=== PATIENT | male | born 1965 | race Caucasian/White ===

== ENCOUNTER 2020-01-08 08:17 | Outpatient (CLI) | payer BC, SELFPAY ==
--- NOTE | ~2020-01-08 | US_ITS ---
EXAMINATION: US art doppler w press LE BI DATE: 01/08/2020 09:12 INDICATION: Unspecified disorder of circulatory system. Peripheral vascular risk factors of hypertens ion and prior smoking. Numbness and tingling to the lower limbs. TECHNIQUE: Segmental pressures and plethysmographic and Doppler waveforms of the brachial and lower e xtremity arteries were obtained. COMPARISON: None. FINDINGS: Right and left brachial artery pressures of 136 mm Hg and 154 mm Hg, respectively, are concordant (no rmal difference <= 30 mmHg). The right and left high-thigh pressure indices were unable to be obtaine d due to inability to occlude the vessels (normal > 1.2). The right ankle-brachial index (KELLY) is 1.20 (normal >= 0.9-1). The right great toe-brachial index (T BI) is 1.08 (normal >= 0.6-0.8). The right lower extremity segmental pressure gradients are normal (n ormal gradients <= 20-30 mmHg between adjacent levels on the same leg or the same levels on the two l egs). Arterial waveforms are triphasic at the right common femoral, superficial femoral and popliteal arteries and biphasic more distally with brisk systolic upstrokes throughout. The left KELLY is 1.19. The left TBI is 1.21. The left lower extremity segmental pressure gradients are normal. Arterial waveforms are triphasic at the left common femoral and superficial femoral arteries and biphasic more distally with brisk systolic upstrokes throughout. IMPRESSION: 1. Normal KELLY's and TBI's bilaterally. No significant occlusive disease. Reviewed, dictated and finalized at location A.
== END 2020-01-08 08:18 | disposition home or self-care (01) ==
PROVIDERS: PCP Physician Assistant; Visit Provider Physician Assistant
DX: I99.9 Unspecified disorder of circulatory system (principal); I10 Essential (primary) hypertension; R20.0 Anesthesia of skin; R20.2 Paresthesia of skin
CPT/HCPCS: 93923

== ENCOUNTER 2020-03-20 08:25 | Outpatient (CLI) | payer BC, SELFPAY ==
--- NOTE | 2020-03-20 08:33 | EST_ITS ---
Patient Info Name: Edwardo Lisa Age: 54 years : 1965 Gender: Male Ht: 69 in Wt: 185 lbs BSA: 2.04 m2 Exam Date: 03/20/2020 9:10 AM Exam Location: [facility] Stress Patient Status: Outpatient Admit Date: 03/20/2020 Staff Ordering Physician: Roberto Mccormack PA-C Attending Provider: Roberto Mccormack PA-C Exercise Technologist: Hillary Zhu RDCS Exercise Physician: Myron Saunders DO Exam Type: CA stress test treadmill Study Info Indications R07.9 - Chest pain, unspecified A treadmill exercise stress test was performed. Summary 1. 1. Abnormal Rubens exercise stress test for ischemic ST changes by ECG criteria. 2. 2. Reduced functional capacity, achieving 6 METs of workload. This was limited due to development of chest pains. 3. 3. Baseline hypertension with hypertensive response to exercise. 4. 4. Appropriate HR response to exercise. 5. 5. Appropriate HR recovery at 1 minute post exercise. 6. 6. No imaging with stress testing. 7. 7. Patient informed of the above results. 8. 8. Roberto Mccormack was informed of the above results. Protocol: [facility] Stress ECG Details Stage: REST Duration (min): 8 min : 54 sec Speed (mph): 0.0 Grade (%): 0 HR (bpm): 78 SBP (mmHg): 147 DBP (mmHg): 100 METS: --- Stage: REST Duration (min): 10 min : 10 sec Speed (mph): 0.0 Grade (%): 0 HR (bpm): 90 SBP (mmHg): 147 DBP (mmHg): 100 METS: --- Stage: STAGE 1 Duration (min): 1 min : 0 sec Speed (mph): 1.7 Grade (%): 10 HR (bpm): 112 SBP (mmHg): 147 DBP (mmHg): 100 METS: --- Stage: STAGE 1 Duration (min): 2 min : 0 sec Speed (mph): 1.7 Grade (%): 10 HR (bpm): 127 SBP (mmHg): 147 DBP (mmHg): 100 METS: --- Stage: STAGE 1 Duration (min): 3 min : 0 sec Speed (mph): 1.7 Grade (%): 10 HR (bpm): 139 SBP (mmHg): 192 DBP (mmHg): 105 METS: --- Stage: STAGE 2 Duration (min): 1 min : 0 sec Speed (mph): 2.5 Grade (%): 12 HR (bpm): 150 SBP (mmHg): 192 DBP (mmHg): 105 METS: --- Stage: STAGE 2 Duration (min): 1 min : 0 sec Speed (mph): 2.5 Grade (%): 12 HR (bpm): 150 SBP (mmHg): 192 DBP (mmHg): 105 METS: --- Stage: RECOVERY Duration (min): 0 min : 59 sec Speed (mph): 0.0 Grade (%): 0 HR (bpm): 136 SBP (mmHg): 202 DBP (mmHg): 102 METS: --- Stage: RECOVERY Duration (min): 1 min : 59 sec Speed (mph): 0.0 Grade (%): 0 HR (bpm): 113 SBP (mmHg): 202 DBP (mmHg): 102 METS: --- Stage: RECOVERY Duration (min): 2 min : 59 sec Speed (mph): 0.0 Grade (%): 0 HR (bpm): 101 SBP (mmHg): 224 DBP (mmHg): 84 METS: --- Stage: RECOVERY Duration (min): 3 min : 59 sec Speed (mph): 0.0 Grade (%): 0 HR (bpm): 103 SBP (mmHg): 224 DBP (mmHg): 84 METS: --- Stage: RECOVERY Duration (min): 4 min : 59 sec Speed (mph): 0.0 G
== END 2020-03-20 08:26 | disposition home or self-care (01) ==
PROVIDERS: PCP Physician Assistant; Visit Provider Physician Assistant
DX: R07.9 Chest pain, unspecified (principal); I10 Essential (primary) hypertension
CPT/HCPCS: 93017

== ENCOUNTER 2020-03-30 02:10 | Outpatient (CLI) | payer BC, SELFPAY ==
[2020-03-30 18:20] LABS: SARS-CoV-2 RNA PCR Negative
== END 2020-03-30 02:11 | disposition home or self-care (01) ==
LOC: ANHCOVIDDT 02:11
PROVIDERS: PCP Physician Assistant; Visit Provider Specialist
DX: Z01.812 Encounter for preprocedural laboratory examination (principal); Z11.59 Encounter for screening for other viral diseases
CPT/HCPCS: 87635; C9803; U0003

== ENCOUNTER 2020-03-30 16:19 | Observation (INO) | payer BC, SELFPAY ==
[2020-03-30] VITALS (8 sets, daily range): BP systolic 98–153; BP diastolic 70–84; PULSE 57–72; RESP 10–18; TEMP 36.1–36.8; O2SAT 14–100; BMI 24.3
--- NOTE | ~2020-03-30 | XR_ITS ---
EXAMINATION: XR chest 2V DATE: 03/30/2020 16:46 INDICATION: Left chest pain. TECHNIQUE: Frontal and lateral views of the chest were obtained. COMPARISON: None. FINDINGS: There is mild atelectasis in lingula. No pleural effusion or pneumothorax. The heart size i s normal. IMPRESSION: 1. Mild atelectasis in lingula. Reviewed, dictated and finalized at location B.
--- NOTE | 2020-03-30 16:21 | ECG_ITS ---
Measurements Intervals [place] Rate: 67 P: 69 TX: 176 QRS: 39 QRSD: 90 T: 75 QT: 364 QTc: 386 Interpretive Statements SINUS RHYTHM BASELINE ARTIFACT- I, II, AVR NORMAL ECG Electronically Signed On 03-30-2020 16:37:14 CDT by Myron Saunders D.O.
--- NOTE | 2020-03-30 16:30 | ED.CHESTPAIN ---
HPI - Chest Pain General Chief Complaint: Chest Pain Stated Complaint: chest pain Time Seen by Provider: 03/30/20 16:29 Source: patient and family Mode of arrival: ambulatory Limitations: no limitations History of Present Illness HPI narrative: Patient is a 54-year-old male who presents for evaluation of chest pain. Patient reports a one-month history of intermittent, sharp chest pain that seems to come and go spontaneously. Patient reports that pain has been constant over the past 12 hours, but does improve with nitroglycerin. Patient states that he is scheduled for a echocardiogram and cardiac catheterization with Dr. Vences next week as he failed a outpatient stress test and required nitroglycerin, and consultation with Dr. Saunders following the stress test. Patient has been compliant with his medications. Patient currently reports pain is very mild, at times there is radiation to the left shoulder through the left arm. No current back pain, jaw pain or arm pain. No current nausea, diaphoresis or shortness of breath. Related Data Home Medications Medication Instructions Recorded Confirmed cod liver oil 1 cap PO DAILY 08/27/19 03/20/20 echinacea 380 mg capsule 380 mg PO DAILY 08/27/19 03/20/20 flaxseed oil 1,000 mg capsule 1,000 mg PO DAILY 08/27/19 03/20/20 hawthorn webb 565 mg capsule mg PO 08/27/19 03/20/20 lisinopril 10 mg tablet 10 mg PO DAILY 08/27/19 03/20/20 multivitamin with min tablet PO 08/27/19 03/20/20 no.36-iron,carbonyl-FA 16 mg iron-0.38 mg tablet valerian root 250 mg capsule 250 mg PO DAILY 08/27/19 03/20/20 ascorbic acid (vitamin C) 500 mg mg PO DAILY cap 03/20/20 03/20/20 capsule aspirin 81 mg tablet,delayed 81 mg PO DAILY 03/20/20 03/20/20 release diphenhydramine HCl 25 mg capsule 25 mg PO DAILY PRN cap 03/20/20 03/20/20 zinc 50 mg tablet 50 mg PO DAILY 03/20/20 03/20/20 Calcium 600 600 mg PO 03/30/20 ascorbic acid-elderberry fruit 1 tablet PO 03/30/20 [Airborne (elderberry)] copper gluconate 1 mg PO DAILY 03/30/20 terbinafine HCl 250 mg PO 03/30/20 Allergies Allergy/AdvReac Type Severity Reaction Status Date / Time Penicillins Allergy Mild Itching Verified 03/30/20 16:29 Review of Systems Review of Systems: Narrative: CONSTITUTIONAL: Denies fever, chills, or sweats. EYES: Denies visual changes CARDIOVASCULAR: Reports chest pain, denies palpitations, or edema. RESPIRATORY: Denies cough or dyspnea. GASTROINTESTINAL: Denies abdominal pain, nausea, vomiting, or diarrhea. GENITOURINARY: Denies dysuria or hematuria. SKIN: Denies rash or itching. MUSCULOSKELETAL: Denies back pain, joint pain, or myalgia. NEUROLOGIC: Denies headache, numbness, or weakness. [facility] Family History Family History Sibling Patient's sister is in good health Father Family history of malignant neoplasm Patient's father is Mother Patient's mother is Social History Social History Smoking status: Never smoker Second hand tobacco smoke exposure: No Alcohol intake: current Drinks per week: 0 Substance use: never Gender identity (if verbalized by the patient): Male Exam Narrative: Exam Narrative: GENERAL: Awake, alert, conversant HEAD: Normocephalic, atraumatic. EYES: PERRLA and EOMI. ENT: Nares clear, no rhinorrhea or epistaxis. Mucous membranes moist. NECK: Supple. CHEST: No respiratory distress, breathing even and non labored, no chest wall tenderness HEART: Regular rate, sinus rhythm ABDOMEN:Non distended, non tender EXTREMITIES: Normal range of motion. No edema. SKIN: Warm, dry, no rash. NEURO:No focal deficits. Alert and oriented x3 Course Vital Signs Vital signs: Vital Signs Temperature 36.7 C 03/30/20 16:22 Pulse Rate 67 03/30/20 16:22 Respiratory Rate 16 03/30/20 16:22 Blood Pressure 152/82 H 03/30/20 16:22
[2020-03-30 16:49] LABS: Basophils Absolute Auto 0.1 K/mm3 (0.0-0.1); Basophils Percent Auto 0.9 % (0.2-1.2); Eosinophils Absolute Auto 0.2 K/mm3 (0-0.3); Eosinophils Percent Auto 2.6 % (0-4.4); Hematocrit 45.1 % (42.0-52.0); Hemoglobin 15.3 g/dL (14.0-18.0); Immature Granulocyte Absolute 0.01 K/mm3 (0.00-0.031); Immature Granulocyte Percent A 0.2 % (0-0.5); Lymphocytes Percent Auto 27.1 % (18.3-44.2); Mean Corpuscular HGB Conc 33.9 g/dl (32-36); Mean Corpuscular Hemoglobin 31.3 pg (26-34); Mean Corpuscular Volume 92.2 fl (80-100); Mean Platelet Volume 10.5 fl (7.4-10.4); Monocytes Absolute Auto 0.7 K/mm3 (0.1-0.6); Monocytes Percent Auto 9.8 % (2.6-8.5); Neutrophils Absolute Auto 3.9 K/mm3 (1.3-6.7); Neutrophils Percent Auto 59.4 % (45.5-73.1); Platelet Count Result 298 k/mm3 (150-375); Red Blood Count 4.89 M/mm3 (4.6-6.20); Red Cell Distribution Width 12.5 % (11.5-14.5); White Blood Count 6.6 K/mm3 (4.5-10.0)
[2020-03-30 17:01] LABS: Anion Gap 8 mmol/L (8-16); Blood Urea Nitrogen 17 mg/dL (9-20); Calcium 9.3 mg/dL (8.4-10.2); Carbon Dioxide 27 mmol/L (22-30); Chloride 103 mmol/L (98-107); Estimated CRCL calculation 103 ml/min; Estimated Glomerular Filt Rate > 60; Glucose 105 mg/dL (75-110); Sodium 138 mmol/L (137-145)
[2020-03-30 17:09] LABS: INR 1.3; Partial Thromboplastin Time 27.6 SECONDS (22.3-36.8)
[2020-03-30 17:12] LABS: Troponin I < 0.012 ng/mL (0.000-0.034)
[2020-03-30] MEDS: ASPIRIN 81 MG CHEWABLE TABLET 324 MG PO (17:24)
[2020-03-30] MEDS: NITROGLYCERIN SL 0.4 MG TABLET SUBLINGUAL (17:29)
[2020-03-30] MEDS: ONDANSETRON INJ 4 MG/2 ML VIAL IV PUSH (17:29)
[2020-03-30] MEDS: MORPHINE SULFATE 4 MG/ML INJ IV PUSH (17:29)
--- NOTE | 2020-03-30 17:45 | PC.NURSE ---
EDP at bedside discussing POC w/ pt.
--- NOTE | 2020-03-30 17:46 | ECG_ITS ---
Measurements Intervals [place] Rate: 57 P: -16 HI: 174 QRS: 1 QRSD: 105 T: -19 QT: 423 QTc: 414 Interpretive Statements SINUS BRADYCARDIA POSSIBLE LEFT VENTRICULAR HYPERTROPHY MINIMAL Q WAVES- HIGH LATERAL LEADS BORDERLINE T WAVE ABNORMALITY- INFERIOR LEADS BORDERLINE ECG Electronically Signed On 03-30-2020 19:02:05 CDT by Myron Saunders D.O.
--- NOTE | 2020-03-30 17:48 | ECG_ITS ---
Measurements Intervals [place] Rate: 55 P: 70 NC: 175 QRS: 53 QRSD: 110 T: 78 QT: 437 QTc: 421 Interpretive Statements SINUS BRADYCARDIA MINIMAL Q WAVES- INFERIOR LEADS BORDERLINE T WAVE ABNORMALITY- HIGH LATERAL LEADS BORDERLINE ECG Electronically Signed On 03-31-2020 11:07:40 CDT by Myron Saunders D.O.
[2020-03-30] MEDS: SODIUM CHLORIDE 0.9% IV 1,000 ML 999 ML (17:51)
--- NOTE | 2020-03-30 17:53 | PC.NURSE ---
Per [facility] EDP Dr Sandoval, initiate 1 L NS 999MLS/HR due to pt became hypotensive following admin of Morphine 4 and 1 SL Nitro tab.
--- NOTE | 2020-03-30 18:24 | PC.NURSE ---
Per DR Sandoval, okay for repeat EKG due to pt states I feel like there is more tightness in my chest than before, and its more pinpoint. Pt VSS.
[2020-03-30 20:28] LABS: Troponin I < 0.012 ng/mL (0.000-0.034)
--- NOTE | 2020-03-30 20:32 | ADMGEN ---
This patient, Edwardo Lisa, was admitted to IMU Room 201-01. Patient/family oriented to hospital policies and general routines including ID bracelet, bed and alarms, visiting hours, pain management, procedures, bathroom and other care routines, personal items, smoking policy, room service/diet, and visiting hours. Valuables list has been completed. Information on how to activate the Rapid Response Team has been discussed. Patient/Family are encouraged to report perceived risks to care and to ask questions if they do not understand what they are told or what they should do.
--- NOTE | 2020-03-30 21:08 | PM.IMHP ---
H&P: HPI History of Present Illness Date/Time: 03/30/20 21:08 Reason for admission: CP. 54 yr old man whose PCP is ELDER Browne, presents to ER for chest pains. He has a history of hypertension and dyslipidemia. Reports in last several weeks he has been having intermittent chest pressure with walking or sexual activity. In the last 3 days he had constant waxing and waning chest pressure, chest pinching and sharp chest pains at rest in mid to left chest region. Currently it is at 3/10 and would go up to 5/10 in intensity. It is associated with sob. He took NTG at home and it eased his chest pain but did not take it away. He decided to come in to ER for evaluation. Thus far troponins are negative x 2. He was scheduled for cardiac cath on Monday with Dr. Vences. Denies sob, orthopnea, PND, palpitations. Cardiovascular Procedures Electrophysiology:: 03/20/20 EKG: Sinus rhythm at stress lab. Stress Tests:: 03/20/20 Treadmill stress test: Abnormal with 2-[address] depression in II, III, avF and V5-V6 with chest pains. Resolved with NTG SL x1. 01/08/20 KELLY with segmental pressures: Normal. Chief complaint: Chest pain Narrative: Edwardo Lisa is a 54 year old male Review of Systems Review of Systems: All systems reviewed & are unremarkable except as noted in HPI and below Constitutional: Constitutional: Reports as per HPI, Denies chills and Denies fatigue Cardiovascular: Cardiovascular: Reports as per HPI, Reports chest pain and Denies lightheadedness Respiratory: Respiratory: Reports as per HPI and Reports dyspnea Gastrointestinal: Gastrointestinal: Reports as per HPI and Denies abdominal pain Genitourinary: Genitourinary: Reports as per HPI and Denies dysuria Musculoskeletal: Musculoskeletal: Reports as per HPI Neurologic: Reports as per HPI, Denies Abnormal speech present and Denies confusion [facility] Family History Family History Sibling Patient's sister is in good health Father Family history of malignant neoplasm Patient's father is Mother Patient's mother is Social History Social History Smoking status: Former smoker Second hand tobacco smoke exposure: No Alcohol intake: current Drinks per week: 2 Substance use: never Substance use type: does not use Gender identity (if verbalized by the patient): Male Spiritual care concerns: No Meds Home Medications and Allergies Home Medications Medication Instructions Recorded Confirmed Type cod liver oil 1 cap PO DAILY 08/27/19 03/30/20 History echinacea 380 mg capsule 380 mg PO DAILY 08/27/19 03/30/20 History flaxseed oil 1,000 mg capsule 1,000 mg PO DAILY 08/27/19 03/30/20 History hawthorn webb 565 mg capsule 565 mg PO DAILY 08/27/19 03/30/20 History lisinopril 10 mg tablet 10 mg PO DAILY 08/27/19 03/30/20 History multivitamin with min 16 tablet PO DAILY 08/27/19 03/30/20 History no.36-iron,carbonyl-FA 16 mg iron-0.38 mg tablet valerian root 250 mg capsule 250 mg PO DAILY 08/27/19 03/30/20 History famotidine 20 mg tablet 20 mg PO BID PRN #60 tablet 08/28/19 03/30/20 Rx sildenafil 100 mg tablet See Rx Instructions .ROUTE 02/12/20 03/30/20 Rx .COMPLEX PRN #9 tablet ascorbic acid (vitamin C) 500 mg 5 mg PO DAILY cap 03/20/20 03/30/20 History capsule aspirin 81 mg tablet,delayed 81 mg PO DAILY 03/20/20 03/30/20 History release diphenhydramine HCl 25 mg capsule 25 mg PO DAILY PRN cap 03/20/20 03/30/20 History metoprolol succinate 25 mg 25 mg PO DAILY #30 tablet 03/20/20 03/30/20 Rx tablet,extended release 24 hr nitroglycerin 0.4 mg sublingual 0.4 mg SUBLINGUAL Q5M PRN #30 03/20/20 03/30/20 Rx tablet tablet pravastatin 20 mg tablet 20 mg PO DAILY #30 tablet 03/20/20 03/30/20 Rx zinc 50 mg tablet 50 mg PO DAILY 03/20/20 03/30/20 History Calcium 600 600 mg PO DAILY 0
[2020-03-30] MEDS: diphenhydrAMINE HCl CAP 25 MG CAPSULE PO (23:29)
[2020-03-30 23:43] LABS: Troponin I < 0.012 ng/mL (0.000-0.034)
[2020-03-31] VITALS (22 sets, daily range): BP systolic 122–162; BP diastolic 73–114; PULSE 58–79; RESP 10–18; TEMP 35.7–36.6; O2SAT 96–100
--- NOTE | 2020-03-31 | ECHO_ITS ---
Patient Info Name: Edwardo Lisa Age: 54 years : 1965 Gender: Male Ht: 69 in Wt: 165 lbs BSA: 1.92 m2 HR: 60 bpm BP: 140 / 73 mmHg Heart Rhythm: Sinus Rhythm Technical Quality: Fair Exam Date: 03/31/2020 1:32 PM Exam Location: [facility]monary Patient Status: Inpatient Admit Date: 03/30/2020 Staff Ordering Physician: Myron Saunders DO Fire Official: Sami Stockton RDCS Attending Provider: Myron Saunders DO Referring Physician: Chip BEDOYA; Exam Type: CA echo doppler color flow Study Info Indications R07.9 - Chest pain, unspecified Complete two-dimensional, color flow and Doppler transthoracic echocardiogram is performed. Strain analysis performed. History/Risk Factors Chest pain; LHC w/ complex LAD lesion, HTN, SOB/DURON. Summary 1. Left ventricular chamber dimension is normal. 2. Left ventricular systolic function is normal, estimated at 60-65%. 3. The left ventricular diastolic function is normal. 4. E/e' 8 is minimally elevated. 5. Global longitudinal strain is normal at -17.7%. Left Ventricle E/e' 8 is minimally elevated. Global longitudinal strain is normal at -17.7%. Left ventricular chamber dimension is normal. Left ventricular systolic function is normal, estimated at 60-65%. The left ventricular diastolic function is normal. Right Ventricle Right ventricular chamber dimension is normal. Right ventricular systolic function is normal. Left Atria Left atrial chamber dimension is normal. Right Atria Right atrial chamber dimension is normal. Aortic Valve Cannot determine number of aortic valve leaflets. The aortic valve is not well visualized. There is no aortic valve stenosis. There is no aortic valve regurgitation. Pulmonic Valve There is no pulmonic regurgitation. Mitral Valve There is no mitral valve stenosis. There is no mitral valve regurgitation. Tricuspid Valve There is no tricuspid valve regurgitation. Pericardium/Pleural There is no pericardial effusion. Inferior Vena Cava Normal inferior vena cava with >50% collapse upon inspiration consistent with normal right atrial pressure, 5 mmHg. Aorta The aortic root size at the sinus of Valsalva is normal. Left Ventricular Outflow Tract Name Value Normal LVOT 2D LVOT Diameter 2.0 cm LVOT Doppler LVOT Peak Gradient 2 mmHg LVOT Mean Gradient 1 mmHg LVOT VTI 16 cm LVOT VTI/AV VTI Ratio 0.8 LVOT Stroke Volume 48 ml LVOT CO 2.9 l/min LVOT CI 1.5 l/min/m2 Mitral Valve Name Value Normal MV Doppler MV Decel Cannon 271 cm/s2 MV PHT 72 ms MV Ar
--- NOTE | 2020-03-31 08:03 | PM.PNCARD ---
Progress Note: A&P Assessment and Plan (1) Chest pain: Code(s): R07.9 - Chest pain, unspecified Status: Acute Assessment and Plan: Probably unstable angina. OR ruled out by EKG and series of troponins. Echo today. Keep NPO until seen by [facility]. Notified Prema Alvarez with [facility] about patient as he was scheduled as outpatient to have left heart cath tomorrow. Risks/benefits/alternative treatment had been discussed with patient and he is agreeable for procedure. (2) Hypertension: Code(s): I10 - Essential (primary) hypertension Status: Acute Assessment and Plan: Stable. (3) Dyslipidemia: Code(s): E78.5 - Hyperlipidemia, unspecified Status: Acute (4) Abnormal stress test: Code(s): R94.39 - Abnormal result of other cardiovascular function study Status: Acute Subjective Date/time seen: 03/31/20 08:03 Reports chest pain is better this morning. No sob. Exam Const: General: comfortable and no acute distress Neck: Neck: no JVD Carotids: no bruits Resp: Auscultation: clear to auscultation bilaterally, no crackles, no rales, no rhonchi and no wheezes Cardio: Rate: regular rate Rhythm: regular rhythm Heart sounds: no murmurs GI: Inspection: non-distended Neuro: Speech: normal speech Extrem: Right lower extremity: no edema Left lower extremity: no edema Objective Data Vital Signs Vital Signs: Vital Signs - 24 hr 03/30/20 16:22 03/30/20 16:27 03/30/20 17:52 Temperature 98.1 F Pulse Rate 67 69 57 L Respiratory Rate 16 12 Blood Pressure 152/82 H 98/70 L Pulse Oximetry 96 96 03/30/20 18:48 03/30/20 19:23 03/30/20 19:50 Temperature 98.3 F Pulse Rate 70 72 69 Respiratory Rate 15 10 L 18 Blood Pressure 113/73 121/72 128/75 Pulse Oximetry 95 97 14 L 03/30/20 20:23 03/30/20 22:00 03/31/20 00:00 Temperature 97.0 F L 96.3 F L Pulse Rate 70 62 58 L Respiratory Rate 18 16 Blood Pressure 153/84 H 122/80 Pulse Oximetry 100 98 03/31/20 02:00 03/31/20 04:00 03/31/20 05:33 Temperature 97.8 F Pulse Rate 65 59 L 59 L Respiratory Rate 18 Blood Pressure 140/73 Pulse Oximetry 99 Intake/Output Intake/Output: Intake & Output 03/28/20 03/29/20 03/30/20 03/31/20 23:59 23:59 23:59 23:59 Intake Total 1000 250 Output Total 650 Balance 1000 -400 Meds/Results Medications: Active Medications Generic Name Dose Route Start Last Admin Trade Name Freq PRN Reason Stop Dose Admin Acetaminophen 650 mg 03/30/20 17:53 Tylenol Tablet PO Q4H PRN Mild Pain (1-3) or Fever Aspirin 81 mg 03/31/20 09:00 Aspirin Ec PO DAILY [facility] Diphenhydramine HCl 25 mg 03/30/20 21:14 03/30/20 23:29 Benadryl Cap PO 25 mg HS PRN Administration Sleep Famotidine 20 mg 03/30/20 21:14 Pepcid PO BID PRN GERD Lisinopril 10 mg 03/31/20 09:00 Prinivil PO DAILY [facility] Metoprolol Succinate 25 mg 03/31/20 09:00 Toprol Xl PO DAILY [facility] Nitroglycerin 0.4 mg 03/30/20 21:14 Nitrostat Subl 0.4 Mg (1/150) SUBLINGUAL Q5M PRN chest pain Non-Formulary Medication 1 mg 03/31/20 09:00 Finasteride PO 04/30/20 09:01 DAILY [facility] Ondansetron HCl 4 mg 03/30/20 17:53 Zofran Inj IV PUSH Q4H PRN Nausea Pravastatin Sodium 20 mg 03/31/20 09:00 Pravastatin Sodium PO DAILY [facility] Radiology Results: ITS Impressions Chest X-Ray 03/30/20 16:48 IMPRESSION: 1. Mild atelectasis in lingula. Labs Labs: Laboratory Results - last 24 hr 03/30/20 03/30/20 03/30/20 16:40 16:40 16:40 WBC 6.6 RBC 4.89 Hgb 15.3 Hct 45.1 MCV 92.2 MCH 31.3 MCHC 33.9 RDW 12.5 Plt Count 298 MPV 10.5 H Immature Gran % (Auto) 0.2 Neut % (Auto) 59.4 Lymph % (Auto) 27.1 [place] % (Auto) 9.8 H Eos % (Auto) 2.6 Baso % (Auto) 0.9 Lymph # (Auto) 1.80 [place] # (Auto) 0.7 H Eos # (Auto) 0.2 Baso # (A
--- NOTE | 2020-03-31 08:57 | PM.CNCAR ---
Assessment and Plan Assessment and plan (1) Unstable angina: Code(s): I20.0 - Unstable angina Status: Acute Assessment and Plan: 54-year-old male with hypertension, dyslipidemia, erectile dysfunction. Patient admitted with progressively worsening chest discomfort for approximately 2 months. Recent outpatient treadmill stress test from 03/20/2020 positive for ischemia. Patient was originally scheduled for outpatient cardiac catheterization tomorrow, however, due to worsening chest discomfort, he was hospitalized yesterday. After discussing benefits, risks and alternatives of invasive workup, patient is willing to proceed with cardiac catheterization to rule out significant obstructive CAD. Continue aspirin, statin. Additional recommendations to follow after cardiac catheterization is complete. Longitudinal cardiac care as per Dr Saunders (2) Abnormal stress test: Code(s): R94.39 - Abnormal result of other cardiovascular function study Status: Acute Assessment and Plan: Cardiac catheterization today, plus minus intervention as necessary (3) Hypertension: Code(s): I10 - Essential (primary) hypertension Status: Acute Assessment and Plan: Current antihypertensives. Blood pressure management as an outpatient by Dr. Saunders History of Present Illness History of Present Illness Consult date/time: 03/31/20 08:57 Date of consult: 03/31/2020 Reason for consult: Chest pain Requesting physician: Dr. Saunders chief complaint: Chest pain- , off and on x approximately 2 months with recent worsening HPI: 54-year-old male with hypertension, dyslipidemia, erectile dysfunction. Patient came to [facility] ER on 03/30/2020 with complaints of worsening chest discomfort. Patient is being managed by Dr. Saunders for his cardiovascular care. He recently had treadmill stress test 03/20/20 which was reportedly abnormal with 2-[address] depression in II, III, avF and V5-V6 with chest pains, resolved with NTG SL x1 . Patient was scheduled to undergo cardiac catheterization as an outpatient tomorrow. However, due to worsening chest discomfort, he came to the ER yesterday. Patient denies any known prior cardiac history. He states that he has been experiencing chest discomfort, off and on for about 2 months. He describes the chest pain as pressure-like sensation with occasional sharp sensation, worse with exertion. His symptoms will last for minutes and hours, however, couple of days ago, his symptoms were persistent, and he decided to come to the hospital for further evaluation. He has occasional shortness of breath. Denies palpitation, dizziness or syncope. No PND, orthopnea or lower extremity swelling. EKG which I personally evaluated showed sinus rhythm, T-wave inversion in the inferior leads. Serial troponins are negative. Intervention Cardiology has been consulted for invasive workup with cardiac catheterization to rule out significant obstructive CAD. Patient gives history of IVC filter placement which according to patient was placed at the time of pelvic fracture. He states that he had pelvic fracture due to a tractor [place]. Patient is a nonsmoker, drinks alcohol occasionally, no illicit drugs. Recently got . 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 Reason For Visit: Chest pain Review of Systems Constitutional: Constitutional: Denies chills, Denies fatigue, Denies fever(s) and Denies headache(s) Eyes: Eyes: Reports as per HPI, Denies change in vision, Denies loss of vision and Denies eye pain ENT: Reports as per HPI, Reports Normal hearing present, Denies headache(s), Denies lip swelling, Denies epistaxis and Denies sore throat Cardiovascular: Cardiovascular: Reports as per HPI, Reports chest pain, Denies syncope, Denies irregular heart rhythm, Denies lightheadedness and Reports dyspnea Respiratory: Respiratory: Reports as per HPI, Denies cough, Denies dyspn
--- NOTE | 2020-03-31 09:24 | WPDMODSED ---
Moderate Sedation Note-Pt Data Patient Data Allergies Allergy/AdvReac Type Severity Reaction Status Date / Time Penicillins Allergy Mild Itching Verified 03/30/20 16:29 Home Medications Medication Instructions Recorded Confirmed Type cod liver oil 1 cap PO DAILY 08/27/19 03/30/20 History echinacea 380 mg capsule 380 mg PO DAILY 08/27/19 03/30/20 History flaxseed oil 1,000 mg capsule 1,000 mg PO DAILY 08/27/19 03/30/20 History hawthorn webb 565 mg capsule 565 mg PO DAILY 08/27/19 03/30/20 History lisinopril 10 mg tablet 10 mg PO DAILY 08/27/19 03/30/20 History multivitamin with min 16 tablet PO DAILY 08/27/19 03/30/20 History no.36-iron,carbonyl-FA 16 mg iron-0.38 mg tablet valerian root 250 mg capsule 250 mg PO DAILY 08/27/19 03/30/20 History famotidine 20 mg tablet 20 mg PO BID PRN #60 tablet 08/28/19 03/30/20 Rx sildenafil 100 mg tablet See Rx Instructions .ROUTE 02/12/20 03/30/20 Rx .COMPLEX PRN #9 tablet ascorbic acid (vitamin C) 500 mg 5 mg PO DAILY cap 03/20/20 03/30/20 History capsule aspirin 81 mg tablet,delayed 81 mg PO DAILY 03/20/20 03/30/20 History release diphenhydramine HCl 25 mg capsule 25 mg PO DAILY PRN cap 03/20/20 03/30/20 History metoprolol succinate 25 mg 25 mg PO DAILY #30 tablet 03/20/20 03/30/20 Rx tablet,extended release 24 hr nitroglycerin 0.4 mg sublingual 0.4 mg SUBLINGUAL Q5M PRN #30 03/20/20 03/30/20 Rx tablet tablet pravastatin 20 mg tablet 20 mg PO DAILY #30 tablet 03/20/20 03/30/20 Rx zinc 50 mg tablet 50 mg PO DAILY 03/20/20 03/30/20 History Calcium 600 600 mg PO DAILY 03/30/20 03/30/20 History ascorbic acid-elderberry fruit 1 tablet PO DAILY 03/30/20 03/30/20 History [Airborne (elderberry)] copper gluconate 1 mg PO DAILY 03/30/20 03/30/20 History finasteride 1 mg PO DAILY 03/30/20 03/30/20 History terbinafine HCl 250 mg PO USEASDIRECTD 03/30/20 03/30/20 History Current Medications: Active Medications Acetaminophen (Tylenol Tablet) 650 mg PO Q4H PRN PRN Reason: Mild Pain (1-3) or Fever Aspirin (Aspirin Ec) 81 mg PO DAILY [facility] Diphenhydramine HCl (Benadryl Cap) 25 mg PO HS PRN PRN Reason: Sleep Last Admin: 03/30/20 23:29 Dose: 25 mg Documented by: Famotidine (Pepcid) 20 mg PO BID PRN PRN Reason: GERD Lisinopril (Prinivil) 10 mg PO DAILY [facility] Metoprolol Succinate (Toprol Xl) 25 mg PO DAILY [facility] Nitroglycerin (Nitrostat Subl 0.4 Mg (1/150)) 0.4 mg SUBLINGUAL Q5M PRN PRN Reason: chest pain Non-Formulary Medication (Finasteride) 1 mg PO DAILY [facility] Stop: 04/30/20 09:01 Ondansetron HCl (Zofran Inj) 4 mg IV PUSH Q4H PRN PRN Reason: Nausea Pravastatin Sodium (Pravastatin Sodium) 20 mg PO DAILY [facility] Sedation/Anesthesia: No previous sedation/anesthesia problems (including family history). [facility] Past Medical History Medical History (Updated 03/31/20 @ 09:20 by Selvin Perez MD) Abnormal stress test BMI 28.0-28.9,adult Chest pain Cholecystectomy planned Circulation disorder of lower extremity Dyslipidemia Hair loss Hypertension Pelvic fracture Surgical History Surgical History (Updated 03/31/20 @ 09:18 by Selvin Perez MD) S/P IVC filter Family History Family History Sibling Patient's sister is in good health Father Family history of malignant neoplasm Patient's father is Mother Patient's mother is Social History Social History Smoking status: Former smoker Second hand tobacco smoke exposure: No Alcohol intake: current Drinks per week: 2 Substance use: never Substance use type: does not use Gender identity (if verbalized by the patient): Male Spiritual care concerns: No Mod Sed Physical Exam Physical Exam Pre Procedural Exam: Normal: Airway Hours since solid foods: 10 Hours since liquid intake: 10 Internal Medicine - PN: Obj Da Vital Signs Vital Signs: Vital Si
[2020-03-31] MEDS: lisinopriL 10 MG TABLET PO (09:34)
[2020-03-31] MEDS: METOPROLOL SUCCINATE EXT REL 25 MG TABCR PO (09:35)
[2020-03-31] MEDS: ASPIRIN 81 MG ENTERIC TABLET PO (09:35)
[2020-03-31] MEDS: PRAVASTATIN SODIUM 20 MG TABLET PO (09:36)
--- NOTE | 2020-03-31 10:54 | WPDCARDPROC ---
Cardiac Cath Procedure Note Date of procedure:: 03/31/20 Performing physician:: Selvin Perez MD Procedure Procedure note:: LEFT HEART CATHETERIZATION AND CORONARY ANGIOGRAM REPORT DATE OF PROCEDURE: 03/31/2020 INDICATION FOR PROCEDURE: unstable angina BRIEF CLINICAL HISTORY:54-year-old male with hypertension, dyslipidemia, erectile dysfunction. Patient was admitted with progressively worsening chest discomfort for approximately 2 months. Recent outpatient treadmill stress test from 03/20/2020 was reportedly positive for ischemia. Patient was originally scheduled for outpatient cardiac catheterization on 04/01/2020, however, due to worsening chest discomfort, he was hospitalized yesterday. After discussing benefits, risks and alternatives of invasive workup, patient was willing to proceed with cardiac catheterization to rule out significant obstructive CAD. Benefits and risks of the procedure were discussed with the patient in depth, and informed consent was obtained prior to the procedure. Risks of the procedure include but are not limited to vascular complications including groin hematoma, retroperitoneal bleed, vessel perforation; periprocedural IA, cardiac arrhythmias, stroke, contrast induced nephropathy, and . After discussing all the benefits, risks and alternatives, patient was willing to proceed with the procedure. PROCEDURES PERFORMED: 1. Left heart catheterization- Selective left and right coronary angiogram; left ventriculogram and hemodynamic assessment 2. Moderate sedation-CPT code 77700 MODERATE SEDATION: Midazolam 2 mg; fentanyl 50 mcg; Start time 1026 , Stop time 1040 ; Total [id number] time 14 minutes; Darlene Herron RN was trained observer for moderate sedation. ACCESS SITE: Right common femoral artery PROCEDURE NOTE: After obtaining informed consent, patient was brought to catheterization lab and prepped and draped in a usual sterile manner. After local anesthesia with lidocaine, right common femoral artery access was taken with micropuncture needle followed by insertion of a 5 Vincentian sheath. Selective left and right coronary angiogram was performed using 5 Vincentian JL4 and JR4 catheters respectively. Orthogonal views were taken. Next, a 5 Vincentian pigtail catheter was advanced in the LV cavity and was flushed with normal saline. LV pressure measurement was performed. After this, left ventriculogram was performed. The catheter was flushed again, and gradient across the aortic valve was measured on the pullback of the catheter. The 5 Vincentian sheath was secured in place which will be taken out in the chemical lab supervisor holding area and manual pressure will be used for local hemostasis. Patient tolerated procedure well without any immediate procedure related complications. FINDINGS: LEFT MAIN CORONARY: The left main coronary artery is a medium caliber vessel with minimal narrowing in the distal most segment before it bifurcates into LAD and left circumflex branches. LEFT ANTERIOR DESCENDING ARTERY: The LAD is a medium caliber vessel in the proximal segment with mild diffuse disease. There is subtotal 99% stenosis in the mid LAD at the origin of the major diagonal branch. The vessel tapers distally and barely reaches LV apex. The major diagonal branch is a medium-sized vessel and has about 80% ostial stenosis (Goins 1,0,1). LEFT CIRCUMFLEX ARTERY: The left circumflex artery is a small to medium-sized vessel with mild narrowing at the ostium; gives rise to 2 small size OM branches without significant focal stenosis. RIGHT CORONARY ARTERY: The right coronary artery is a large size, dominant high bifurcating vessel. No significant focal stenosis seen. LEFT VENTRICULOGRAM: Overall LV systolic function is preserved with LVEF about 60%; mid-distal anterior wall is mildly hypokinetic. LVEDV measured at 15 mmHg. HEMODYNAMIC ASSESSMENT: Opening pressure 152/94 mmHg , closing pressure 150/87 mmHg , LVEDP 15 mmHg
--- NOTE | 2020-03-31 11:12 | PM.TDS ---
Transfer Discharge Sum: Prov Provider Date of admission: 03/30/20 17:53 Primary care physician: Roberto Mccormack PA-C Admitting clinician: Myron Saunders DO Consults: 03/30/20 Consult to Physician Routine Comment: Consulting Provider: Myron Saunders Reason for consultation: chest pain Has provider been notified: Yes 03/31/20 Consult to Physician Routine Comment: SPOKE WITH LAN ANDERSON Consulting Provider: Selvin Perez weight caller/MD group to consult: MARCIO Reason for consultation: CARDIAC CATH Has provider been notified: Yes DS: Admitting Diagnosis Admitting Diagnosis Admitting Diagnosis: Chest pain, unspecified final diagnosis-unstable angina CAD with high-grade stenosis in the mid LAD involving ostial diagonal branch DS: Discharge Diagnosis Discharge Diagnosis (1) Unstable angina: Code(s): I20.0 - Unstable angina Status: Acute Transfer Discharge Sum: Med Medications Active and Home Medications: Home Medications cod liver oil 1 cap PO DAILY 08/27/19 [History Confirmed 03/30/20] echinacea 380 mg capsule 380 mg PO DAILY 08/27/19 [History Confirmed 03/30/20] flaxseed oil 1,000 mg capsule 1,000 mg PO DAILY 08/27/19 [History Confirmed 03/30/20] hawthorn webb 565 mg capsule 565 mg PO DAILY 08/27/19 [History Confirmed 03/30/20] lisinopril 10 mg tablet 10 mg PO DAILY 08/27/19 [History Confirmed 03/30/20] multivitamin with min no.36-iron,carbonyl-FA 16 mg iron-0.38 mg tablet 16 tablet PO DAILY 08/27/19 [History Confirmed 03/30/20] valerian root 250 mg capsule 250 mg PO DAILY 08/27/19 [History Confirmed 03/30/20] famotidine 20 mg tablet 20 mg PO BID PRN #60 tablet 08/28/19 [Rx Confirmed 03/30/20] sildenafil 100 mg tablet See Rx Instructions .ROUTE .COMPLEX PRN #9 tablet 02/12/20 [Rx Confirmed 03/30/20] ascorbic acid (vitamin C) 500 mg capsule 5 mg PO DAILY cap 03/20/20 [History Confirmed 03/30/20] aspirin 81 mg tablet,delayed release 81 mg PO DAILY 03/20/20 [History Confirmed 03/30/20] diphenhydramine HCl 25 mg capsule 25 mg PO DAILY PRN cap 03/20/20 [History Confirmed 03/30/20] metoprolol succinate 25 mg tablet,extended release 24 hr 25 mg PO DAILY #30 tablet 03/20/20 [Rx Confirmed 03/30/20] nitroglycerin 0.4 mg sublingual tablet 0.4 mg SUBLINGUAL Q5M PRN #30 tablet 03/20/20 [Rx Confirmed 03/30/20] pravastatin 20 mg tablet 20 mg PO DAILY #30 tablet 03/20/20 [Rx Confirmed 03/30/20] zinc 50 mg tablet 50 mg PO DAILY 03/20/20 [History Confirmed 03/30/20] Calcium 600 600 mg PO DAILY 03/30/20 [History Confirmed 03/30/20] ascorbic acid-elderberry fruit [Airborne (elderberry)] 1 tablet PO DAILY 03/30/20 [History Confirmed 03/30/20] copper gluconate 1 mg PO DAILY 03/30/20 [History Confirmed 03/30/20] finasteride 1 mg PO DAILY 03/30/20 [History Confirmed 03/30/20] terbinafine HCl 250 mg PO USEASDIRECTD 03/30/20 [History Confirmed 03/30/20] Active Medications Acetaminophen (Tylenol Tablet) 650 mg PO Q4H PRN PRN Reason: Mild Pain (1-3) or Fever Aspirin (Aspirin Ec) 81 mg PO DAILY [facility] Last Admin: 03/31/20 09:35 Dose: 81 mg Documented by: Diphenhydramine HCl (Benadryl Cap) 25 mg PO HS PRN PRN Reason: Sleep Last Admin: 03/30/20 23:29 Dose: 25 mg Documented by: Famotidine (Pepcid) 20 mg PO BID PRN PRN Reason: GERD Lisinopril (Prinivil) 10 mg PO DAILY [facility] Last Admin: 03/31/20 09:34 Dose: 10 mg Documented by: Metoprolol Succinate (Toprol Xl) 25 mg PO DAILY [facility] Last Admin: 03/31/20 09:35 Dose: 25 mg Documented by: Nitroglycerin (Nitrostat Subl 0.4 Mg (1/150)) 0.4 mg SUBLINGUAL Q5M PRN PRN Reason: chest pain Non-Formulary Medication (Finasteride) 1 mg PO DAILY [facility] Stop: 04/30/20 09:01 Ondansetron HCl (Zofran Inj) 4 mg IV PUSH Q4H PRN PRN Reason: Nausea Pravastatin Sodium (Pravastatin Sodium) 20 mg PO DAILY [facility] Last Admin: 03/31/20 09:36 Dose: 20 mg Documented by: Transfer Discharge Sum: Hosp Hospital Course Hospital course: Edwardo Lisa is a 54 year old male with hyperten
[2020-03-31] MEDS: SODIUM CHLORIDE 0.9% IV 1,000 ML 125 ML IV CONT (13:39)
[2020-03-31] MEDS: ACETAMINOPHEN 325 MG TABLET 650 MG PO (15:17)
--- NOTE | 2020-03-31 20:11 | PC.NURSE ---
1245- returned to room-post cardiac cath- Right groin site WNL- +2 pedal pulse- no c/o pain VSS
== END 2020-03-31 21:25 | disposition short-term general hospital (02) ==
LOC: ANHED 17:59 → ANHIMU 19:31
PROVIDERS: Emergency Medicine; Admitting Provider Internal Medicine Cardiovascular Disease; Emergency Provider Emergency Medicine; PCP Physician Assistant; Visit Provider Internal Medicine Cardiovascular Disease
PROC: 4A023N7 Measurement of Cardiac Sampling and Pressure, Left Heart, Percutaneous Approach (ICD-10-PCS; CPT 93452; principal; 2020-03-31 10:10)
DX: I25.110 Atherosclerotic heart disease of native coronary artery with unstable angina pectoris (principal); I10 Essential (primary) hypertension; E78.5 Hyperlipidemia, unspecified; R94.39 Abnormal result of other cardiovascular function study; N52.9 Male erectile dysfunction, unspecified; Z79.82 Long term (current) use of aspirin; Z79.899 Other long term (current) drug therapy; Z87.891 Personal history of nicotine dependence
CPT/HCPCS: 36415; 71046; 80048; 84484; 85025; 85610; 85730; 93005; 93306; 93458; 96361; 96374; 96375; 99285; A9270; C1887; C1894; G0378; J1644; J2250; J2270; J2405; J3010; J7030; J7040

== ENCOUNTER 2021-10-22 02:34 | Day surgery (SDC) | payer OTHER, SELFPAY ==
[2021-10-15 12:50] VITALS: BMI 28.6
--- NOTE | 2021-10-15 13:26 | PC.NURSE ---
PT PRE-OP INTERVIEW DONE, INSTRUCTIONS GIVEN O HOLD PLAVIX WITH LAST DOSE TO BE TAKEN 10/17/2021 UNTIL AFTER PROCEDURE. PT VERBALIZES UNDERSTANDING
--- NOTE | 2021-10-21 13:43 | WPDANESEPP ---
Anes - Eval Pre Procedure Procedure: Operation Date: 10/22/21 10:30 Proposed Procedures p Screening Colonoscopy - Tavo Corral MD Date/Time: 10/21/21 13:43 Pre Op Diagnosis: neoplasm screening, hx of colon polyps Patient Data Age: 56 Gender: M Height: 1.75 m Weight: 88 kg Allergies Allergy/AdvReac Type Severity Reaction Status Date / Time Penicillins Allergy Mild Itching Verified 10/15/21 12:51 Home Medications Medication Instructions Recorded Confirmed Type flaxseed oil 1,000 mg capsule 1,000 mg PO DAILY 08/27/19 10/15/21 History ascorbic acid (vitamin C) 500 mg 500 mg PO DAILY cap 03/20/20 10/15/21 History capsule diphenhydramine HCl 25 mg capsule 25 mg PO DAILY PRN cap 03/20/20 10/15/21 History metoprolol succinate 25 mg 25 mg PO DAILY #30 tablet 03/20/20 10/15/21 Rx tablet,extended release 24 hr zinc 50 mg tablet 50 mg PO DAILY 03/20/20 10/15/21 History Calcium 600 600 mg PO DAILY 03/30/20 10/15/21 History terbinafine HCl 250 mg PO USEASDIRECTD 03/30/20 10/15/21 History sildenafil 100 mg tablet See Rx Instructions .ROUTE 07/19/21 10/15/21 Rx .COMPLEX PRN #9 tablet acetaminophen 500 mg tablet 500 mg PO Q6H PRN 07/20/21 10/15/21 History atorvastatin 80 mg tablet 80 mg PO QHS 07/20/21 10/15/21 History cholecalciferol (vitamin D3) 125 125 mcg PO DAILY 07/20/21 10/15/21 History mcg (5,000 unit) capsule clopidogrel 75 mg tablet 75 mg PO DAILY 07/20/21 10/15/21 History melatonin 10 mg capsule 10 mg PO QHS 07/20/21 10/15/21 History multivitamin 1 tablet PO DAILY 07/20/21 10/15/21 History ranolazine 1,000 mg 1,000 mg PO Q12H 07/20/21 10/15/21 History tablet,extended release,12 hr K-2 100 mcg PO DAILY 10/15/21 10/15/21 History lisinopril 20 mg PO DAILY 10/15/21 10/15/21 History Patient hx anesthesia problems: none Family hx anesthesia problems: none Results Review: All pre-operative results and documents have been reviewed as part of the pre-operative evaluation. [facility] Past Medical History Medical History (Updated 10/21/21 @ 13:44 by Darien Carr DO) Abnormal stress test BMI 28.0-28.9,adult Chest pain Cholecystectomy planned Circulation disorder of lower extremity Dyslipidemia GERD (gastroesophageal reflux disease) Hair loss Hypertension Pelvic fracture Surgical History Surgical History (Updated 10/21/21 @ 13:44 by Darien Carr DO) History of coronary artery stent placement 03/2021 S/P IVC filter Family History Family History Sibling Patient's sister is in good health Father Family history of malignant neoplasm Patient's father is Mother Patient's mother is Social History Social History Years smoked: 15 Smoking status: Former smoker Tobacco type: cigarettes Second hand tobacco smoke exposure: No Alcohol intake: current Drinks per week: 2 Alcohol use details: occasional Substance use: never Substance use type: does not use Living arrangements: with family Gender identity (if verbalized by the patient): Male Spiritual care concerns: No Exam Day of Procedure 10/21/21 13:43
[2021-10-22 09:40] VITALS: BP 119/78; PULSE 77; RESP 18; TEMP 36.7; O2SAT 99; BMI 28.8
--- NOTE | 2021-10-22 09:58 | WPDANESEFPP ---
Anes - Eval Final PreProcedure Day of Procedure 10/22/21 09:58 Patient weight: overweight Heart: regular rate and rhythm Lungs: clear to auscultation Airway: Mallampati scale class II Neurological: alert and oriented Last oral intake: >/= 8 hours ASA classification: III Emergent: no Anesthetic plan: proceed Anesthesia type and monitoring: general GIVS and standard monitoring Results Review: All pre-operative results and documents have been reviewed as part of the pre-operative evaluation. Informed Consent: The patient's anesthetic plan and its attendant risks and benefits were discussed with the patient/family/POA. Questions were solicited and answers provided to the satisfaction of the patient/family/POA.
[2021-10-22] MEDS: LACTATED RINGERS 1,000 ML 150 ML IV CONT (10:06)
--- NOTE | 2021-10-22 10:19 | WPDGICN ---
Assessment and Plan Assessment and plan (1) Encounter for screening colonoscopy: Code(s): Z12.11 - Encounter for screening for malignant neoplasm of colon Status: Acute Assessment and Plan: Patient presents for screening colonoscopy. He may have had a colon polyp at last exam 6 years ago. GI Consult Note Consult date/time: 10/22/21 10:19 HPI: Edwardo Lisa is a 56 year old male Presents for screening colonoscopy. Patient has previous history of colon polyp on previous colonoscopy fiber 6 years ago. Patient reports his current weight appetite and bowel movements are normal. He denies abdominal pain. He has had no bleeding. Family history noncontributory. Review of Systems Review of Systems: All systems reviewed & are unremarkable except as noted in HPI and below PMFSH Past Medical History Medical History (Updated 10/22/21 @ 10:21 by Tavo Corral MD) Abnormal stress test BMI 28.0-28.9,adult Chest pain Cholecystectomy planned Circulation disorder of lower extremity Dyslipidemia GERD (gastroesophageal reflux disease) Hair loss Hypertension Pelvic fracture Surgical History Surgical History (Updated 10/21/21 @ 13:44 by Darien Carr DO) History of coronary artery stent placement 03/2021 S/P IVC filter Family History Family History Sibling Patient's sister is in good health Father Family history of malignant neoplasm Patient's father is Mother Patient's mother is Social History Social History Years smoked: 15 Smoking status: Former smoker Tobacco type: cigarettes Second hand tobacco smoke exposure: No Alcohol intake: current Drinks per week: 2 Alcohol use details: occasional Substance use: never Substance use type: does not use Living arrangements: with family Gender identity (if verbalized by the patient): Male Spiritual care concerns: No Meds Home Medications and Allergies Home Medications Medication Instructions Recorded Confirmed Type flaxseed oil 1,000 mg capsule 1,000 mg PO DAILY 08/27/19 10/15/21 History ascorbic acid (vitamin C) 500 mg 500 mg PO DAILY cap 03/20/20 10/15/21 History capsule diphenhydramine HCl 25 mg capsule 25 mg PO DAILY PRN cap 03/20/20 10/15/21 History metoprolol succinate 25 mg 25 mg PO DAILY #30 tablet 03/20/20 10/15/21 Rx tablet,extended release 24 hr zinc 50 mg tablet 50 mg PO DAILY 03/20/20 10/15/21 History Calcium 600 600 mg PO DAILY 03/30/20 10/15/21 History terbinafine HCl 250 mg PO USEASDIRECTD 03/30/20 10/15/21 History sildenafil 100 mg tablet See Rx Instructions .ROUTE 07/19/21 10/15/21 Rx .COMPLEX PRN #9 tablet acetaminophen 500 mg tablet 500 mg PO Q6H PRN 07/20/21 10/15/21 History atorvastatin 80 mg tablet 80 mg PO QHS 07/20/21 10/15/21 History cholecalciferol (vitamin D3) 125 125 mcg PO DAILY 07/20/21 10/15/21 History mcg (5,000 unit) capsule clopidogrel 75 mg tablet 75 mg PO DAILY 07/20/21 10/15/21 History melatonin 10 mg capsule 10 mg PO QHS 07/20/21 10/15/21 History multivitamin 1 tablet PO DAILY 07/20/21 10/15/21 History ranolazine 1,000 mg 1,000 mg PO Q12H 07/20/21 10/15/21 History tablet,extended release,12 hr K-2 100 mcg PO DAILY 10/15/21 10/15/21 History lisinopril 20 mg PO DAILY 10/15/21 10/15/21 History Allergies Allergy/AdvReac Type Severity Reaction Status Date / Time Penicillins Allergy Mild Itching Verified 10/22/21 09:51 Vital Signs Vital Signs - 24 hr 10/22/21 09:40 Temperature 98.1 F Pulse Rate 77 Respiratory Rate 18 Blood Pressure 119/78 Pulse Oximetry 99 Exam Narrative: Physical exam reveals patient to be alert. Vital signs stable. HEENT exam is unremarkable. Patient is anicteric. Lungs are clear to auscultation and percussion. Heart is without murmur or extra sounds.
[2021-10-22] MEDS: SIMETHICONE ORAL SUSPENSION 20 MG/0.3 ML 30 ML BOTTLE 0.6 ML IRRIGATION (10:39)
[2021-10-22 10:47] VITALS: BP 121/79; PULSE 84; RESP 16; O2SAT 97
[2021-10-22 10:57] VITALS: BP 122/79; PULSE 77; RESP 17; O2SAT 97
[2021-10-22 11:07] VITALS: BP 149/96; PULSE 65; RESP 13; O2SAT 99
== END 2021-10-22 11:20 | disposition home or self-care (01) ==
PROVIDERS: PCP Internal Medicine; Visit Provider Internal Medicine Gastroenterology
PROC: 0DJD8ZZ Inspection of Lower Intestinal Tract, Via Natural or Artificial Opening Endoscopic (ICD-10-PCS; CPT 45378; principal; 2021-10-22 10:30)
DX: Z12.11 Encounter for screening for malignant neoplasm of colon (principal); K64.8 Other hemorrhoids; Z86.010 Personal history of colon polyps; K21.9 Gastro-esophageal reflux disease without esophagitis; E78.5 Hyperlipidemia, unspecified; I10 Essential (primary) hypertension; Z95.5 Presence of coronary angioplasty implant and graft; Z87.891 Personal history of nicotine dependence
CPT/HCPCS: 45378; J2704; J7120

== ENCOUNTER 2024-01-04 14:06 | Outpatient (CLI) | payer OTHER, SELFPAY ==
[2024-01-04 17:11] LABS: Chlamydia trachomatis NOT DETECTED (NOT DETECTE); Neisseria gonorrhoeae PCR NOT DETECTED (NOT DETECTE)
[2024-01-04 17:11] LABS: Rapid Plasma Reagin Non-Reactive (NonReactive)
[2024-01-04 17:52] LABS: HIV 1/2 Ab P24 Ag Result Negative (Negative)
[2024-01-04 18:01] LABS: Hepatitis C Virus Antibody Negative (Negative)
== END 2024-01-04 14:07 | disposition home or self-care (01) ==
LOC: ANHLAB 14:08
PROVIDERS: PCP Internal Medicine; Visit Provider Physician Assistant
DX: Z11.3 Encounter for screening for infections with a predominantly sexual mode of transmission (principal); R39.89 Other symptoms and signs involving the genitourinary system
CPT/HCPCS: 36415; 86592; 86695; 86696; 86703; 86803; 87491; 87591; G0432

== ENCOUNTER 2025-01-08 07:56 | Emergency (ER) | payer OTHER, SELFPAY ==
--- NOTE | ~2025-01-08 | US_ITS ---
RIGHT LOWER EXTREMITY VENOUS ULTRASOUND Ordering provider: Abraham Llanes MD History: . pain, swelling, dvt r/o . Comparison: None. FINDINGS: --COMMON FEMORAL: Patent and free of thrombus. Normal compressibility, phasic flow and augmentation. --PROXIMAL SUPERFICIAL FEMORAL: Patent and free of thrombus. Normal compressibility, phasic flow and augmentation. --DISTAL SUPERFICIAL FEMORAL: Patent and free of thrombus. Normal compressibility, phasic flow and au gmentation. --POPLITEAL: Patent and free of thrombus. Normal compressibility, phasic flow and augmentation. --POSTERIOR TIBIAL: Patent and free of thrombus. Normal compressibility, phasic flow and augmentation . IMPRESSION: Negative right lower extremity venous US. No deep vein thrombosis. Reviewed, dictated and finalized at location A.
[2025-01-08 07:59] VITALS: BP 174/93; PULSE 71; RESP 18; TEMP 36.4; O2SAT 95
[2025-01-08 08:24] VITALS: BP 147/92; PULSE 68; RESP 16; O2SAT 96
--- OUTSIDE RECORDS SUMMARY | 2025-01-08 08:39 | XMS_ITS | Clinical Summary ---
Author Organization [facility] Address [address] [place] [address] Care Team Providers Care Hardness Tester Name Role Phone Roberto Mccormack Primary Care Provider Allergies Active Allergy Reactions Criticality Noted Date Comments Penicillin G Rash Medium 06/26/2018 Medications multivitamin capsuleIndicat ions:Vitamin Deficiency Prevention Take 1 capsule by mouth every morning Active melatonin 5 mg tablet Take 1 tablet (5 mg total) by mouth nightly sleep Active terbinafine (LamiSIL) 250 mg tablet Take 1 tablet (250 mg total) by mouth daily 0 9 Active sildenafiL (VIAGRA) 100 mg tablet TAKE 1 TABLET BY MOUTH NEEDED APPROXIMATELY 1 HOUR BEFORE SEXUAL ACTIVITY 0 Active magnesium, potassium aspartate 250-250 mg capsule Active cholecalcifero l (VITAMIN D-3) 25 mcg (1,000 unit) tablet Active cetirizine 10 mg capsule Active omeprazole (PriLOSEC) 40 mg capsule Take 1 capsule (40 mg total) by mouth daily 4 Active ezetimibe (ZETIA) 10 mg tablet Take 1 tablet (10 mg total) by mouth daily 30 tablet 11 4 05/15/20 25 Active metoprolol XL (TOPROL-XL) 25 mg extended release tablet Take 1 tablet by mouth once daily 90 tablet 3 4 Active lisinopriL (PRINIVIL,ZEST RIL) 20 mg tablet Take 1 tablet by mouth once daily 90 tablet 3 4 Active ranolazine ER (RANEXA) 500 mg 12 hr tablet Take 1 tablet by mouth twice daily 180 tablet 3 4 Active atorvastatin (LIPITOR) 80 mg tablet TAKE 1 TABLET BY MOUTH NIGHTLY AT BEDTIME 90 tablet 1 5 Active clopidogreL (PLAVIX) 75 mg tablet Take 1 tablet by mouth once daily 90 tablet 2 5 Active Active Problems Problem Noted Date Diagnosed Date Coronary artery disease invo lving grindstone coronary artery of grindstone heart without angina pectoris 04/22/2020 Essential hypertension 04/22/2020 Hyperlipidemia 04/22/2020 Claudication 04/22/2020 Angina pectoris, unstable 03/31/2020 Overview (03/31/2020): Added automatically from request for surgery [id number] Chest pressure 03/31/2020 Overview (04/03/2020): Added automatically from request for surgery [id number] S/P coronary artery balloon dilation 03/31/2020 Overview (04/03/2020): Added automatically from request for surgery [id number] S/P coronary artery stent placement 03/31/2020 Overview (04/03/2020): Added automatically from request for surgery [id number] Post-traumatic osteoarthritis of right hip 07/16 Overview (07/16/2018): Added automatically from request for surgery [id number] Bleeding at insertion site Hypotension Chronic back pain S/P balloon angioplasty of pulmonary artery bran ches Encounters Date Type Department Care Team Description 01/03/2025 Telephone [facility] Cardiology [address] [place] [phone] Selvin Perez MD Leg Swelling from Last 3 Months Immunizations Immunization Administration Dates Next Due Influenza, Quadrivalent, Spl it, Preservative Free, Intramuscular 05/27/2019 Surgical History Surgery Date Site/Laterality Comments VT CHOLECYSTECTOMY Cholecystectomy - (Added by TW Conv) INSERT VENA CAVA FILTER OTHER SURGICAL HISTORY 08/21/2007 - 08/20/2008 ORIF pelvic ring and bilateral femurs ANGIOPLASTY March 2020 COLON SURGERY March 2008 FRACTURE SURGERY March 2008 JOINT REPLACEMENT BLADDER SURGERY March 2008 ABDOMINAL SURGERY March 2008 Medical History Medical History Date Comments Arthritis Varicella Sleep apnea Hypertension GERD (gastroesophageal reflux disease) Heart disease March 2020 Family History Medical History Relation Name Comments Arthritis Father father Cancer Father father Anesthesia problems Mother mother Arthritis Mother mother Diabetes Mother mother Heart disease Mother mother Hypertension Mother mother Relation Name Status Comments Father father Mother mother Delayed emergen ce with anesthesia Social History Tobacco Use Types Packs/Day Years Used Date Smoking Tobacco: Former Cigarettes Q uit: 1985 Smokeless Tobacco: Never Tobacco Cessation:Counseling Given: Not Answered Alcohol Use Standard Drinks/Week Comments Yes 6 (1 standard drink = 0.6 oz pur e alcohol) social Sex and Gender Information Value Date Recorded Sex Assigned at Not on file 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 Gender Identity Male 06/06/2018 3:26 PM CDT Sexual Orientation Not on file Obstetrics History Last Filed Vital Signs Vital Sign Reading Time Taken Comments Blood Pressure 124/80 05/15/2024 9:23 AM CDT Pulse 73 05/15/2024 9:23 AM CDT Temperature 36.4 C (97.5 F) 11/02/2020 2:38 PM CDT Respiratory Rate 15 05/02/2022 10:3 2 AM CDT Oxygen Saturation 98% 05/15/2024 9:23 AM CDT Inhaled Oxygen Concentration - - Weight 97.5 kg (214 lb 14.4 oz) 05/15/2024 9:23 AM CDT Height 175.3 cm (5' 9 ) 05/15/2024 9:23 AM CDT Body Mass Index 31.74 05/15/2024 9:23 AM CDT Plan of Treatment Health Maintenance Due Date Last Done Comments Colon Cancer Screening-Colonoscopy 1964 Depression Screening 1964 Hepatitis C Screening 1964 Prostate Cancer Screening-PSA 1964 Hepatitis B Screening 1982 Regular Well Visit/Exam 18-64 1982 Zoster Vaccine (1 of 2) 2014 Covid-19 Vaccine (3 - season) 2024 12/10/2020, 11/12/2020 DTaP/Tdap/Td Vaccine (2 - Td or Tdap) 01/08/2025 01/08/2015, 12/28/2006, 01/31/2003 Influenza Vaccine (Season Ended) 2025 05/27/2019, 06/07/2018, 06/22/2017, Additional history exists Pneumococcal vaccine <65 Aged Out No longer eligible based on patient's age to complete this topic Medical Devices Implanted Type Area Acquisition Analyst Device Identifier Shelf Expiration Date Model / Serial / Lot Bilateral Femurs And Pelvis Plates And Screws Bilateral: Femoral [employer] [id number] Echo Bi-Metric 15mm 155mm Noncollar Full Proximal Profile Press - [id number] Implanted:Qty: 1 on 08/17/2018 by Edwardo Vilchis MD at [facility] Right: Hip [employer] [id number] 01/31/2027 [id number] / / [id number] [employer] 650-1055 G7 28mm Hip Head Femoral Biolox Delta Biolox Option - [id number] Implanted:Qty: 1 on 08/17/2018 by Edwardo Vilchis MD at [facility] Right: Hip [employer] [id number] 03/14/2028 650-1055 / / [id number] [employer] 650-1064 G7 Type 1 Hip -6mm Offset Taper Sleeve Centering Titanium Biolox - [id number] Implanted:Qty: 1 on 08/17/2018 by Edwardo Vilchis MD at [facility] Right: Hip [employer] [id number] 05/24/2028 650-1064 / / [id number] [employer] [id number] G7 52mm Limit 3 Hole Hip E Hemisphere Offset Shell Acetabular - [id number] Implanted:Qty: 1 on 08/17/2018 by Edwardo Vilchis MD at [facility] Right: Hip [employer] [id number] 06/01/2028 [id number] / / [id number] [employer] [id number] Trilogy 6.5mm 40mm Self Tap Hip Acetabular Cortical Screw Bone - [id number] Implanted:Qty: 1 on 08/17/2018 by Edwardo Vilchis MD at [facility] Right: Hip [employer] [id number] 06/20/2028 [id number] / / [id number] [employer] [id number] Trilogy 6.5mm 30mm Self Tap Acetabular Cortical Screw Bone - [id number] Implanted:Qty: 1 on 08/17/2018 by Edwardo Vilchis MD at [facility] Right: Hip [employer] [id number] 05/20/2028 [id number] / / [id number] [employer] [id number] Trilogy 6.5mm 40mm Self Tap Hip Acetabular Cortical Screw Bone - [id number] Implanted:Qty: 1 on 08/17/2018 by Edwardo Vilchis MD at [facility] Right: Hip [employer] [id number] 05/20/2028 [id number] / / [id number] [employer] [id number] G7 E1 42mm 2 Mobility S Liner Acetabular - [id number] Implanted:Qty: 1 on 08/17/2018 by Edwardo Vilchis MD at [facility] Right: Hip [employer] [id number] 06/11/2028 [id number] / / [id number] [employer] [id number] Active Articulation 42mm Bearing Hip Arcomxl Sterile 28mm Modular - [id number] Implanted:Qty: 1 on 08/17/2018 by Edwardo Vilchis MD at [facility] Right: Hip [employer] [id number] 04/19/2023 [id number] / / [id number] [employer] Leonid [id number] Synergy 3mm 24mm 144cm Radiopaque 1 Access Port Inflation Lumen - [id number] Implanted:Qty: 1 on 04/02/2020 by Selvin Perez MD at [facility] [employer] Leon[employer] [id number] / / Daig Leonid [id number] Device Closure Angio-Seal Vip Bondek-Plus Polyglyd L70 Cm Od6 Fr Odsec.035 In Vascular - [id number] Implanted:Qty: 1 on 04/02/2020 by Selvin Perez MD at [facility] Daig Leonid[employer] [id number] / / [place] [employer] Leonid [id number] Synergy 2.75mm 12mm 144cm Radiopaque 1 Access Port Inflation - [id number] Implanted:Qty: 1 on 04/03/2020 by Selvin Perez MD at [facility] Sape Leonid [id number] / / [employer] [id number] Device Closure Angio-Seal Vip Bondek-Plus Polyglyd L70 Cm Od6 Fr Odsec.035 In Vascular - [id number] Implanted:Qty: 1 on 04/03/2020 by Selvin Perez MD at [facility] Daig Leonid[employer] [id number] / / Explanted Type Area Acquisition Analyst Device Identifier Shelf Expiration Date Model / Serial / Lot Dhs Plate Explanted:Qty: 1 on 08/17/2018 by Edwardo Vilchis MD at [facility] Right: Hip [employer]hew Intertam Lag Screw Explanted:Qty: 4 on 08/17/2018 at [facility] Right: Hip [employer] Insurance [facility] PPO [place] [facility] HMO/PPO Address: [address] [address] [place] [address] [facility] PPO [place] [facility] HMO/PPO Address: [address] [address] [place] [address] Advance Directives For more information, please contact: [phone] * Full Code (Latest Code Status on File) Date Activated Date Inactivated Comments 04/01/2020 8:29 AM 04/05/2020 9:52 PM * Full Code Date Activated Date Inactivated Comments 08/17/2018 1:59 PM 08/18/2018 4:02 PM Care Teams Hardness Tester Relationship Specialty Start Date End Date Roberto Mccormack PA [address] [facility] [address] [place] [address] PCP - General Physician Inspection And Testing Supervisor 06/06/18
--- OUTSIDE RECORDS SUMMARY | 2025-01-08 08:39 | XMS_ITS | Clinical Summary ---
Author Organization [facility] Address [address] [place] [address] Care Team Providers Care Assembly Line Inspector Name Role Phone Roberto Mccormack PA-C Primary Care Provide r Source Comments [facility],non-owned Affiliates and Associated Physician Practices is amultiple site organization consisting of ambulatory clinics and hospital sitesin [place], [place], [place] and [place]. This disclosure is being madepursuant to the Care Everywhere program and may not contain all information available regarding this patient. Last updated 18.[facility] Medications * Be aware that medications may not be up to date on this document. Alwaysverify current medications with the patient. acetaminophen (TYLENOL) 325 MG tablet Take 325 mg by mouth every 4 hours as needed for Fever or Pain Maximum allowable Acetaminophen amount = 4 Grams (4000 mg) / 24 hours. 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 Gender Identity Not on file Sexual Orientation Not on file Plan of Treatment Health Maintenance Due Date Last Done Comments COLOGVIELKA (AGES 45-75) - COL ON CA SCREENING 1964 COLON MONITORING 1964 COLONOSCOPY - COLON CA SCREENING 1964 CT COLONOGRAPHY - COLON CA SCREENING 1964 Colorectal Cancer Screening 1964 FIT - COLON CA SCREENING 1964 FLEX SIG - COLON CA SCREENING 1964 LIPID TESTING 1964 HIV SCREENING 1979 HEPATITIS C SCREENING 09/01/1982 DTAP/TDAP/TD VACCINES (1 - Tdap) 1983 PNEUMOCOCCAL VACCINE 50+ (1 of 1 - PCV) 2014 ZOSTER VACCINE (1 of 2) 2014 COVID-19 VACCINE (1 - 2023-2 5 season) 2024 DEPRESSION SCREENING 08/21/2024 INFLUENZA VACCINE (Season Ended) 2025 05/27/20 Respiratory Syncytial Virus (RSV) Vaccine Pt: or over 60 yrs (1 - 1-dose 75+ series) 2039 HEPATITIS B VACCINE Aged Out No longe r eligible based on patient's age to complete this topic HIB VACCINE Aged Out No longer eligi ble based on patient's age to complete this topic HPV VACCINE Aged Out No longer eligi ble based on patient's age to complete this topic MENINGOCOCCAL (Group B) VACC INE SHARED DECISION-MAKING Aged Out No longer eligibl e based on patient's age to complete this topic MENINGOCOCCAL GROUPS A/C/Y/W VACCINE Aged Out No longer eligible b ased on patient's age to complete this topic Insurance [address] Care Teams Assembly Line Inspector Relationship Specialty Start Date End Date Roberto Mccormack PA-C [address] [facility] [address] [place] [address] PCP - General Physician Fence Repairman 09/06/18
--- OUTSIDE RECORDS SUMMARY | 2025-01-08 08:41 | XMS_ITS | Encounter Summary ---
Author Organization [facility] Address [address] [place] [address] Care Team Providers Care Press Puller Name Role Phone Roberto Mccormack Primary Care Provider Encounter Details Date Type Department Care Team (Late st Contact Info) Description 08/19/2018 Documentation [facility] Case Management [address] [place] [address] Monet Fishman RN Social History Tobacco Use Types Packs/Day Years Used Date Smoking Tobacco: Former Cigarettes 0.3 23 1 985 - 2008 Smokeless Tobacco: Never Alcohol Use Standard Drinks/Week Comments Yes 6 (1 standard drink = 0.6 oz pur e alcohol) social Sex and Gender Information Value Date Recorded Sex Assigned at Not on file 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
--- OUTSIDE RECORDS SUMMARY | 2025-01-08 08:41 | XMS_ITS | CONTINUITY OF CARE DOCUMENT ---
Author Name jason gomez Address Unknown Organization [facility] Address [address] [address] [place] [address] Phone [phone] Care Team Providers Care Truck Trailer Mechanic Name Role Phone jason gomez Unavailable Unavailable INSURANCE PROVIDERS Payer name Policy type / Coverage type [employer] red alliance party ID [id number] PAY [id number]
--- OUTSIDE RECORDS SUMMARY | 2025-01-08 09:12 | XMS_ITS | Clinical Summary ---
Author Organization [facility] Address [address] [place] [address] Care Team Providers Care Pasting Machine Offbearer Name Role Phone Roberto Mccormack PA-C Primary Care Provide r Source Comments [facility] [employer],non-owned Affiliates and Associated Physician Practices is amultiple site organization consisting of ambulatory clinics and hospital sitesin [place], [place], [place] and [place]. This disclosure is being madepursuant to the Care Everywhere program and may not contain all information available regarding this patient. 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
--- OUTSIDE RECORDS SUMMARY | 2025-01-08 09:12 | XMS_ITS | Referral Summary ---
Author Organization [facility] Address [address] [place] [address] Care Team Providers Care Art Objects Salesperson Name Role Phone Roberto Mccormack Primary Care Provider Encounters Date Type Department Care Team Description 01/03/2025 Telephone [facility] Cardiology [address] [facility] [address] [place] [phone] Selvin Perez MD Leg Swelling from Last 3 Months Allergies Active Allergy Reactions Criticality Noted Date [...] Diagnosed Date Coronary artery disease invo lving [place] ind[place] tribe coronary artery of [place] heart without angina pectoris 04/22/2020 Essential hypertension 04/22/2020 Hyperlipidemia 04/22/2020 Claudication 04/22/2020 Angina pectoris, unstable 03/31/2020 Overview (03/31/2020): Added automatically from request for surgery [id number] Chest pressure 03/31/2020 Overview (04/03/2020): Added automatically from request for surgery [id number] S/P coronary artery balloon dilation 03/31/2020 Overview (04/03/2020): Added automatically from request for surgery [id number] S/P coronary artery stent placement 03/31/2020 Overview (04/03/2020): Added automatically from request for surgery [id number] Post-traumatic osteoarthritis of right hip 07/16 Overview (07/16/2018): Added automatically from request for surgery [id number] Bleeding at insertion site Hypotension Chronic back pain S/P balloon angioplasty of pulmonary artery bran ches Immunizations Immunization Administration Dates Next Due Influenza, Quadrivalent, Spl it, Preservative Free, Intramuscular 05/27/2019 Social History Tobacco Use Types Packs/Day Years Used Date Smoking Tobacco: Former Cigarettes Q uit: 1985 Smokeless Tobacco: Never Tobacco Cessation:Counseling Given: Not Answered Alcohol Use Standard Drinks/Week Comments Yes 6 (1 standard drink = 0.6 oz pur e alcohol) social Sex and Gender Information Value Date Recorded Sex Assigned at Not on file 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 Gender Identity Male 06/06/2018 3:26 PM CDT Sexual Orientation Not on file Last Filed Vital Signs Vital Sign Reading [...] 05/15/2024 9:23 AM CDT Plan of Treatment Not on file Medical Devices Implanted Type Area Credit Charge Authorizer Device Identifier Shelf Expiration Date Model / Serial / Lot Bilateral Femurs And Pelvis Plates And Screws Bilateral: Femoral [employer] [id number] Echo Bi-Metric 15mm 155mm Noncollar Full Proximal Profile Press - [id number] Implanted:Qty: 1 on 08/17/2018 by Edwardo Vilchis MD at [facility] Right: Hip [employer] [id number] 01/31/2027 [id number] / / [id number] [employer] 650-1055 G7 28mm Hip Head Femoral Biolox Delta Biolox Option - [id number] Implanted:Qty: 1 on 08/17/2018 by Edwardo Vilchis MD at [facility] Right: Hip [employer] [id number] 03/14/2028 650-1055 / / [id number] [employer] 650-1064 G7 Type 1 Hip -6mm Offset Taper Sleeve Centering Titanium Biolox - [id number] Implanted:Qty: 1 on 08/17/2018 by Edwardo Vilchis MD at [facility] Right: Hip [employer] [id number] 05/24/2028 650-1064 / / [id number] [employer] [id number] G7 52mm Limit 3 Hole Hip E Hemisphere Offset Shell Acetabular - [id number] Implanted:Qty: 1 on 08/17/2018 by Edwardo Vilchis MD at [facility] Right: Hip [employer] Inc [id number] 06/01/2028 [id number] / / [id number] [employer] [id number] Trilogy 6.5mm 40mm Self Tap Hip Acetabular Cortical Screw Bone - [id number] Implanted:Qty: 1 on 08/17/2018 by Edwardo Vilchis MD at [facility] Right: Hip [employer] [id number] 06/20/2028 [id number] / / [id number] [employer] [id number] Trilogy 6.5mm 30mm Self Tap Acetabular Cortical Screw Bone - [id number] Implanted:Qty: 1 on 08/17/2018 by Edwardo Vilchis MD at [facility] Right: Hip [employer] [id number] 05/20/2028 [id number] / / [id number] [employer] [id number] Trilogy 6.5mm 40mm Self Tap Hip Acetabular Cortical Screw Bone - [id number] Implanted:Qty: 1 on 08/17/2018 by Edwardo Vilchis MD at [facility] Right: Hip [employer] [id number] 05/20/2028 [id number] / / [id number] [employer] [id number] G7 E1 42mm 2 Mobility S Liner Acetabular - [id number] Implanted:Qty: 1 on 08/17/2018 by Edwardo Vilchis MD at [facility] Right: Hip [employer] Inc [id number] 06/11/2028 [id number] / / [id number] [employer] Xl-[id number] Active Articulation 42mm Bearing Hip Arcomxl Sterile 28mm Modular - [id number] Implanted:Qty: 1 on 08/17/2018 by Edwardo Vilchis MD at [facility] Right: Hip [employer] [id number] 04/19/2023 XL-[id number] / / [id number] [employer] [id number] Synergy 3mm 24mm 144cm Radiopaque 1 Access Port Inflation Lumen - [id number] Implanted:Qty: 1 on 04/02/2020 by Selvin Perez MD at [facility] Scientific Leonid [id number] / / Daig Leonid [id number] Device Closure Angio-Seal Vip Bondek-Plus Polyglyd L70 Cm Od6 Fr Odsec.035 In Vascular - [id number] Implanted:Qty: 1 on 04/02/2020 by Selvin Perez MD at [facility] Daig [employer] [id number] / / [employer] Leonid [id number] Synergy 2.75mm 12mm 144cm Radiopaque 1 Access Port Inflation - [id number] Implanted:Qty: 1 on 04/03/2020 by Selvin Perez MD at [facility] [employer] Leon[employer] [id number] / / Daig Leonid [id number] Device Closure Angio-Seal Vip Bondek-Plus Polyglyd L70 Cm Od6 Fr Odsec.035 In Vascular - [id number] Implanted:Qty: 1 on 04/03/2020 [facility] [id number] / / Explanted Type Area Credit Charge Authorizer Device Identifier Shelf Expiration Date Model / Serial / Lot Dhs Plate Explanted:Qty: 1 on 08/17/2018 by Edwardo Vilchis MD at [facility] Right: Hip [employer]hew Intertam Lag Screw Explanted:Qty: 4 on 08/17/2018 at [facility] Right: Hip [employer] Nephew Insurance [facility] [place]PO [place] [facility] Advance Directives For more information, please contact: [phone] * Full Code (Latest Code Status on File) Date Activated Date Inactivated Comments 04/01/2020 8:29 AM 04/05/2020 9:52 PM * Full Code Date Activated Date Inactivated Comments 08/17/2018 1:59 PM 08/18/2018 4:02 PM Care Teams Art Objects Salesperson Relationship Specialty Start Date End Date Roberto Mccormack PA [address] [facility] [address] [place] [address] PCP - General Physician Apparel Sales Associate 06/06/18
--- OUTSIDE RECORDS SUMMARY | 2025-01-08 09:12 | XMS_ITS | Clinical Summary ---
Author Organization [facility] Address [address] [place] [address] Care Team Providers Care Pneumatic Tool Repairer Name Role Phone Roberto Mccormack Primary Care [...] Diagnosed Date Coronary artery disease invo lving [place] coronary artery of [place] heart without angina pectoris 04/22/2020 Essential hypertension 04/22/2020 Hyperlipidemia 04/22/2020 Claudication 04/22/2020 Angina pectoris, unstable 03/31/2020 Overview (03/31/2020): Added automatically from request for surgery [id number] Chest pressure 03/31/2020 Overview (04/03/2020): Added automatically from request for surgery [id number] S/P coronary artery balloon dilation 03/31/2020 Overview (04/03/2020): Added automatically from request for surgery [id number] S/P coronary artery stent placement 03/31/2020 Overview (04/03/2020): Added automatically from request for surgery [id number] Post-traumatic osteoarthritis of right hip 07/16 Overview (07/16/2018): Added automatically from request for surgery [id number] Bleeding at insertion site Hypotension Chronic back pain S/P balloon angioplasty of pulmonary artery [place]an [place]hes Encounters Date Type Department Care Team Description 01/03/2025 Telephone [facility] Cardiology [address] [place] [id number] Selvin Perez MD Leg Swelling from Last 3 Months Immunizations Immunization Administration Dates Next Due Influenza, Quadrivalent, Spl it, Preservative Free, Intramuscular 05/27/2019 Surgical History Surgery Date Site/Laterality Comments [place] CHOLECYSTECTOMY Cholecystectomy - (Added by TW Conv) [...] on file Legal Sex Male 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 Gender Identity Male 06/06/2018 3:26 PM CDT [...] this topic Medical Devices Implanted Type Area Book Salesman Device Identifier Shelf Expiration Date Model / Serial / Lot Bilateral Femurs And Pelvis Plates And Screws Bilateral: Femoral [employer] [id number] Echo Bi-Metric 15mm 155mm Noncollar Full Proximal Profile Press - [id number] Implanted:Qty: 1 on 08/17/2018 by Edwardo Vilchis MD at [facility] Right: Hip [employer] [id number] 01/31/2027 [id number] / / [id number] [employer] 650-1055 G7 28mm Hip Head Femoral Biolox Delta Biolox Option - [id number] Implanted:Qty: 1 on 08/17/2018 by Edwardo Vilchis MD at [facility] Right: Hip [employer] [id number] 03/14/2028 650-1055 / / [id number] [employer] 650-1064 G7 Type 1 Hip -6mm Offset Taper Sleeve Centering Titanium Biolox - [id number] Implanted:Qty: 1 on 08/17/2018 by Edwardo Vilchis MD at [facility] Right: Hip [employer] [id number] 05/24/2028 650-1064 / / [id number] [employer] [id number] G7 52mm Limit 3 Hole Hip E Hemisphere Offset Shell Acetabular - [id number] Implanted:Qty: 1 on 08/17/2018 by Edwardo Vilchis MD at [facility] Right: Hip [employer] [id number] 06/01/2028 [id number] / / [id number] [employer] [id number] Trilogy 6.5mm 40mm Self Tap Hip Acetabular Cortical Screw Bone - [id number] Implanted:Qty: 1 on 08/17/2018 by Edwardo Vilchis MD at [facility] Right: Hip [employer] [id number] 06/20/2028 [id number] / / [id number] [employer] [id number] Trilogy 6.5mm 30mm Self Tap Acetabular Cortical Screw Bone - [id number] Implanted:Qty: 1 on 08/17/2018 by Edwardo Vilchis MD at [facility] Right: Hip [employer] [id number] 05/20/2028 [id number] / / [id number] [employer] [id number] Trilogy 6.5mm 40mm Self Tap Hip Acetabular Cortical Screw Bone - [id number] Implanted:Qty: 1 on 08/17/2018 by Edwardo Vilchis MD at [facility] Right: Hip [employer] [id number] 05/20/2028 [id number] / / [id number] [employer] [id number] G7 E1 42mm 2 Mobility S Liner Acetabular - [id number] Implanted:Qty: 1 on 08/17/2018 by Edwardo Vilchis MD at [facility] Right: Hip [employer] [id number] 06/11/2028 [id number] / / [id number] [employer] [id number] Active Articulation 42mm Bearing Hip Arcomxl Sterile 28mm Modular - [id number] Implanted:Qty: 1 on 08/17/2018 by Edwardo Vilchis MD at [facility] Right: Hip [employer] [id number] 04/19/2023 [id number] / / [id number] [employer] Leonid [id number] Synergy 3mm 24mm 144cm Radiopaque 1 Access Port Inflation Lumen - [id number] Implanted:Qty: 1 on 04/02/2020 by Selvin Perez MD at [facility] [employer] [id number] / / Daig Leonid [id number] Device Closure Angio-Seal Vip Bondek-Plus Polyglyd L70 Cm Od6 Fr Odsec.035 In Vascular - [id number] Implanted:Qty: 1 on 04/02/2020 by Selvin Perez MD at [facility] Daig Leon[employer] [id number] / / [employer] Leonid [id number] Synergy 2.75mm 12mm 144cm Radiopaque 1 Access Port Inflation - [id number] Implanted:Qty: 1 on 04/03/2020 by Selvin Perez MD at [facility] [employer] Leonid [id number] / / [id number] [id number] Device Closure Angio-Seal Vip Bondek-Plus Polyglyd L70 Cm Od6 Fr Odsec.035 In Vascular - [id number] Implanted:Qty: 1 on 04/03/2020 by Selvin Perez MD at [facility] [employer] Leon[employer] [id number] / / Explanted Type Area Book Salesman Device Identifier Shelf Expiration Date Model / Serial / Lot Dhs Plate Explanted:Qty: 1 on 08/17/2018 by Edwardo Vilchis MD at [facility] Right: Hip [employer]hew Intertam Lag Screw Explanted:Qty: 4 on 08/17/2018 at [facility] Right: Hip [employer] Insurance [facility] PPO [facility] HMO/PPO Address: [address] [address] [place] [address] [facility] PPO [facility] HMO/PPO Address: [address] [address] [place] [address] Advance Directives For more information, please contact: [phone] * Full Code (Latest Code Status on File) Date Activated Date Inactivated Comments 04/01/2020 8:29 AM 04/05/2020 9:52 PM * Full Code Date Activated Date Inactivated Comments 08/17/2018 1:59 PM 08/18/2018 4:02 PM Care Teams Pneumatic Tool Repairer Relationship Specialty Start Date End Date Roberto Mccormack PA [address] [facility] [address] [place] [address] PCP - General Physician Oil Well Gun Perforator Operator 06/06/18
--- OUTSIDE RECORDS SUMMARY | 2025-01-08 09:12 | XMS_ITS | CONTINUITY OF CARE DOCUMENT ---
Author Name jason gomez Address Unknown Organization [facility] Address [address] [place] [address] Phone [phone] Care Team Providers Care Back Tufter Name Role Phone jason gomez Unavailable Unavailable INSURANCE PROVIDERS Payer name Policy type / Coverage type [place] red republican ID [id number] PAY [id number]
--- OUTSIDE RECORDS SUMMARY | 2025-01-08 09:12 | XMS_ITS | Encounter Summary ---
Author Organization [facility] Address [address] [place] [address] Care Team Providers Care Operation Research Analyst Name Role Phone Roberto Mccormack Primary Care Provider Encounter Details Date Type Department Care Team (Late st Contact Info) Description 08/19/2018 Documentation [facility] Case Management [id number] [place] [address] Monet Fishman RN Social History Tobacco Use Types Packs/Day Years Used Date Smoking Tobacco: Former Cigarettes 0.3 23 1 985 - 2008 Smokeless Tobacco: Never Alcohol Use Standard Drinks/Week Comments Yes 6 (1 standard drink = 0.6 oz pur e alcohol) social Sex and Gender Information Value Date Recorded Sex Assigned at Not on file Legal Sex 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
--- NOTE | 2025-01-08 09:17 | ED.LOWEXIN ---
HPI - Extremity Injury (Lower) General Chief Complaint: Extremity Injury, Lower Stated Complaint: R leg pain x 1 week Time Seen by Provider: 01/08/25 08:03 History of Present Illness HPI Narrative: Patient is a 5-year-old male who presents ER with right leg discomfort in the calf and lower extremity swelling. History of swelling in the leg intermittently due to previous trauma in the past. Reports swelling as stated longer this time. No known injury. No chest pain or shortness of breath. No history DVT. No redness of the leg. Related Data Home Medications ?Medication ?Instructions ?Recorded ?Confirmed ?Last Taken ?Type ascorbic acid (vitamin C) 500 mg 500 mg PO DAILY 03/20/20 08/17/23 10/21/21 History capsule diphenhydramine HCl 25 mg capsule 25 mg PO DAILY PRN Sleep 03/20/20 08/08/24 10/21/21 History (Benadryl) zinc 50 mg tablet 50 mg PO DAILY 03/20/20 08/08/24 10/21/21 History Calcium 600 600 mg PO DAILY 03/30/20 08/08/24 10/21/21 History terbinafine HCl 250 mg tablet 250 mg PO USEASDIRECTD 03/30/20 08/08/24 03/30/20 History atorvastatin 80 mg tablet 80 mg PO QHS 07/20/21 08/08/24 10/21/21 History cholecalciferol (vitamin D3) 125 125 mcg PO DAILY 07/20/21 08/08/24 10/21/21 History mcg (5,000 unit) capsule clopidogrel 75 mg tablet 75 mg PO DAILY 07/20/21 08/08/24 10/22/21 06:00 History melatonin 10 mg capsule 10 mg PO QHS 07/20/21 08/08/24 10/21/21 History multivitamin 1 tablet PO DAILY 07/20/21 08/08/24 10/21/21 History ranolazine 1,000 mg 1,000 mg PO Q12H 07/20/21 08/08/24 10/21/21 History tablet,extended release,12 hr lisinopril 20 mg tablet 20 mg PO DAILY 10/15/21 08/08/24 10/21/21 History cetirizine 10 mg tablet (Zyrtec) 10 mg PO DAILY PRN 08/01/22 08/08/24 Unknown History magnesium 200 mg tablet 200 mg PO DAILY 08/07/23 08/08/24 Unknown History ezetimibe 10 mg tablet 10 mg PO DAILY 08/08/24 08/08/24 Unknown History Allergies Allergy/AdvReac Type Severity Reaction Status Date / Time Penicillins Allergy Mild Itching Verified 01/08/25 08:03 Review of Systems Review of Systems: All systems reviewed & are unremarkable except as noted in HPI and below Constitutional: Constitutional: Reports no additional constitutional complaints Cardiovascular: Cardiovascular: Reports no additional cardiovascular complaints Respiratory: Respiratory: Reports no additional respiratory complaints Musculoskeletal: Musculoskeletal: Reports no additional musculoskeletal complaints [facility] Past Medical History Medical History (Updated 01/08/25 @ 09:21 by Abraham Llanes MD) Screening for prostate cancer Hypersomnia Encounter for screening colonoscopy Pain in left hip JAX (obstructive sleep apnea) Onychomycosis Mid back pain Hip pain, bilateral Essential hypertension Dietary counseling and surveillance (11/14/16) Atypical nevi GERD (gastroesophageal reflux disease) Pelvic fracture Cholecystectomy planned Abnormal stress test Dyslipidemia Hypertension Chest pain BMI 28.0-28.9,adult Circulation disorder of lower extremity Hair loss Surgical History Surgical History History of coronary artery stent placement 03/2021 S/P IVC filter Family History Family History (Updated 08/08/24 @ 09:23 by VIRIDIANA Emery) Sibling Patient's sister is in good health Father Family history of malignant neoplasm Luekemia Mother Social History Social History (Updated 08/08/24 @ 09:25 by VIRIDIANA Emery) Years smoked: 15 Smoking status: Former smoker Tobacco type: cigarettes Second hand tobacco smoke exposure: No Alcohol intake: current Drinks per week: 2 Alcohol use details: occasional Substance use: never Substance use type: does not use Lack of Transportation: No Lack of Food: Never True Current Housing: I Have Housing Concerned About Future Housing: No Difficulty Paying Gas/Electric Bills: No Difficulty Paying for Meds: No Currently Unemployed: No Education: Bachelor's Degree Difficulty w/ Childcare or Family Care: No Living arrangements: with family Occupation/Education: occupation Additional occupation/education comments: ra[employer] 97.[employer]- [employer] Gender identity (if verbalized by the patient): Male Spiritual care concerns: No Exam Narrative: GENERAL: Well-appearing, well-nourished, and in no acute distress. HEAD: Normocephalic, atraumatic. ENT: Mucous membranes moist. CHEST: Clear to auscultation. No respiratory distress. HEART: Regular rate and rhythm. Normal peripheral pulses. EXTREMITIES: Normal range of motion. 1+ edema. Positive Homans sign. SKIN: Warm, dry, no rash. NEURO: Alert and oriented x3. PSYCH: Normal mood and affect. Course Course Emergency Course: Ultrasound negative for DVT. Recommend scheduled anti-inflammatories as well as compression stocking. Discharge home. Vital Signs Vital signs: Vital Signs Temperature 97.6 F 01/08/25 07:59 Pulse Rate 71 01/08/25 07:59 Respiratory Rate 18 01/08/25 07:59 Blood Pressure 174/93 H 01/08/25 07:59 Pulse Oximetry 95 01/08/25 07:59 Oxygen Delivery Room Air 01/08/25 07:59 Temperature 97.6 F 01/08/25 07:59 Pulse Rate 68 01/08/25 08:24 Respiratory Rate 16 01/08/25 08:24 Blood Pressure 147/92 H 01/08/25 08:24 Pulse Oximetry 96 01/08/25 08:24 Oxygen Delivery Room Air 01/08/25 07:59 MDM - Extremity Injury (Lower) Imaging Data Radiologist's impression: ITS Impressions Venous Doppler Study 01/08/25 08:38 IMPRESSION: Negative right lower extremity venous US. No deep vein thrombosis. Discharge Plan Discharge Clinical Impression: Edema Patient Disposition: Home Condition: Stable Instructions: Leg Edema (ED) Additional Instructions: Return ER if you have increased swelling, he developed chest pain with shortness of breath, you lose consciousness, you have additional concerns. Take low-dose anti-inflammatories for discomfort, you may also take Tylenol. Wear compression stocking to help with swelling. Patient Language: Jamaican Prescriptions: New naproxen 250 mg tablet 250 mg PO BID Qty: 14 0RF No Action diphenhydramine HCl [Benadryl] 25 mg capsule 25 mg PO DAILY PRN (Reason: Sleep) zinc 50 mg tablet 50 mg PO DAILY ascorbic acid (vitamin C) 500 mg capsule 500 mg PO DAILY metoprolol succinate [Toprol XL] 25 mg tablet extended release 24 hr 25 mg PO DAILY Qty: 30 5RF magnesium 200 mg tablet 200 mg PO DAILY fluticasone propionate [Flonase Allergy Relief] 50 mcg/actuation spray,suspension 2 spray intranasal DAILY Qty: 16 3RF Rx Instructions: administer into each nostril pantoprazole 40 mg tablet,delayed release (DR/EC) 40 mg PO QAM Qty: 90 2RF ezetimibe 10 mg tablet 10 mg PO DAILY atorvastatin 80 mg tablet 80 mg PO QHS ranolazine 1,000 mg tablet extended release 12 hr 1,000 mg PO Q12H clopidogrel 75 mg tablet 75 mg PO DAILY cholecalciferol (vitamin D3) 125 mcg (5,000 unit) capsule 125 mcg PO DAILY multivitamin Tablet 1 tablet PO DAILY melatonin 10 mg capsule 10 mg PO QHS cetirizine [Zyrtec] 10 mg tablet 10 mg PO DAILY PRN terbinafine HCl 250 mg tablet 250 mg PO USEASDIRECTD Rx Instructions: take every day for 1 wk. pt takes last of the month Calcium 600 tablet 600 mg PO DAILY lisinopril 20 mg tablet 20 mg PO DAILY sildenafil 100 mg tablet See Rx Instructions .ROUTE .COMPLEX Qty: 9 5RF Dose Instruction: TAKE ONE TABLET BY MOUTH APPROXIMATELY ONE HOUR BEFORE SEXUAL ACTIVITY NEEDED Rx Instructions: TAKE ONE TABLET BY MOUTH APPROXIMATELY ONE HOUR BEFORE SEXUAL ACTIVITY NEEDED Follow-up/Referrals: Jani Culver DO [Primary Care Provider] - 1 Week
[2025-01-08 09:39] VITALS: BP 156/90; PULSE 66; RESP 16; O2SAT 98
== END 2025-01-08 09:40 | disposition home or self-care (01) ==
PROVIDERS: Emergency Provider Emergency Medicine; PCP Internal Medicine
DX: R60.0 Localized edema (principal); I10 Essential (primary) hypertension; E78.5 Hyperlipidemia, unspecified; K21.9 Gastro-esophageal reflux disease without esophagitis; G47.33 Obstructive sleep apnea (adult) (pediatric); Z95.5 Presence of coronary angioplasty implant and graft; Z87.891 Personal history of nicotine dependence; Z79.02 Long term (current) use of antithrombotics/antiplatelets; Z79.899 Other long term (current) drug therapy
CPT/HCPCS: 93971; 99284

== ENCOUNTER 2025-02-12 14:06 | Outpatient (CLI) | payer OTHER, SELFPAY ==
--- NOTE | ~2025-02-12 | XR_ITS ---
XR tibia fibula RT 2V Ordering provider: Azar Awad APRN History: . M79.661 - Pain in right lower leg MID TO LOW RED X 1 MO . Comparison: None. FINDINGS: BONES: No acute fracture or dislocation. JOINT SPACES: Normal. SOFT TISSUES: Normal. IMPRESSION: No acute osseous abnormality right leg. Reviewed, dictated and finalized at location A.
--- NOTE | ~2025-02-12 | US_ITS ---
EXAM: Focused ultrasound examination of the soft tissues of the lateral aspect of the right lower leg HISTORY: M79.661 - Pain in right lower leg TECHNIQUE: Sonographic evaluation of the soft tissues of the lateral aspect of the right lower leg we re performed assessing grayscale appearance and color Doppler flow. COMPARISON: None. FINDINGS: Sonographic evaluation of the soft tissues of the lateral aspect of the right lower leg demonstrate b enign fibrofatty and fibromuscular elements without a cystic or solid lesion of concern. IMPRESSION: No sonographic abnormality is appreciated on focused ultrasound examination of the lateral aspect of the right lower leg. Reviewed, dictated and finalized at location A.
== END 2025-02-12 14:07 | disposition home or self-care (01) ==
PROVIDERS: PCP Nurse Practitioner; Visit Provider Nurse Practitioner
DX: M79.661 Pain in right lower leg (principal); M79.89 Other specified soft tissue disorders
CPT/HCPCS: 73590; 76882